=== PATIENT | male | born 1950 | race Caucasian/White ===

== ENCOUNTER → 2016-05-06 | Outpatient (CLI) | payer MEDICARE ==
[2016-05-06 10:09] LABS: CH 30.8; CHCM 32.8; HGB 13.7 gm/dL (13.0-17.5); MCH 30.2 pg (25.0-35.0); MCV 94.5 fL (80.0-100.0); Mean Platelet Volume 6.5; RBC 4.55 m/uL (4.30-5.90); WBC 7.1 k/uL (3.8-10.6)
[2016-05-06 10:20] LABS: Anion Gap 11 mmol/L; Blood Urea Nitrogen 18 mg/dL (9-20); Carbon Dioxide 32 mmol/L (22-30); Chloride 100 mmol/L (98-107); Non-African American GFR(MDRD) >60 (>60 ml/min/1.73 sqM); Potassium 3.8 mmol/L (3.5-5.1); Sodium 143 mmol/L (137-145)
== END | disposition home or self-care (01) ==
LOC: LABPAT 09:34
PROVIDERS: ATTEND Internal Medicine Cardiovascular Disease
DX: Z01.812 Encounter for preprocedural laboratory examination (principal); I25.10 Atherosclerotic heart disease of native coronary artery without angina pectoris
CPT/HCPCS: 80051; 82565; 84520; 85027

== ENCOUNTER 2016-05-14 06:05 | Day surgery (SDC) | payer MEDICARE ==
[2016-05-11 10:36] VITALS: BMI 34.7
[2016-05-14] MEDS ORDERED: ASPIRIN 325 MG TAB PO STA (06:27)
[2016-05-14] MEDS ORDERED: ALPRAZolam 0.25 MG TAB PO PRN (06:27)
[2016-05-14] MEDS ORDERED: SODIUM CHLORIDE 0.9% 1,000 ML in EMPTY BAG 1 BAG IV ONE (06:27)
[2016-05-14] MEDS ORDERED: NITROGLYCERIN SL TABS 0.4 MG TAB SUBLINGUAL PRN (06:27)
[2016-05-14] MEDS ORDERED: ALPRAZolam 0.5 MG TAB PO PRN (06:27)
[2016-05-14] MEDS ORDERED: ATORVASTATIN 80 MG TAB PO STA (06:27)
[2016-05-14 07:39] LABS: INR 1.2 (<1.1)
[2016-05-14] MEDS ORDERED: diphenhydrAMINE 50 MG/ML 1 ML VIAL IVP ONE (07:59)
[2016-05-14] MEDS ORDERED: MIDAZOLAM 2 MG/2 ML VIAL IVP ONE (07:59)
[2016-05-14] MEDS ORDERED: LIDOCAINE 2% INJ 20 MG/ML SQ ONE ×2 (08:02→09:05)
[2016-05-14] MEDS ORDERED: BIVALIRUDIN BOLUS 250 MG/50 ML IV ONE (08:39)
[2016-05-14] MEDS ORDERED: BIVALIRUDIN 250 MG in SODIUM CHLORIDE 0.9% 50 ML IV ONE (08:40)
--- NOTE | 2016-05-14 08:49 | CC ---
DATE OF SERVICE: INDICATION: Cardiomyopathy with multivessel coronary artery disease. Cardiomyopathy with multivessel coronary artery disease in a patient with recent inferior wall myocardial infarction at that time was found to have significant disease in LAD and circ. PROCEDURE NOTE: After obtaining informed consent, left heart catheterization and coronary angiogram are performed via the right femoral artery using standard Anika catheters. Patient tolerated the procedure well without any obvious immediate complications. Patient has very tortuous iliac vessels and I had to use a Glidewire to pass the catheters and we used a long exchange length wire to exchange the catheters. FINDINGS: HEMODYNAMICS: Left ventricular end-diastolic pressure is 24 mm. There is no significant gradient across the aortic valve. LEFT VENTRICULOGRAM: Left ventriculogram was not performed. ANGIOGRAPHIC DATA: LEFT MAIN CORONARY ARTERY: Left main coronary artery is normal, assessment is free of stenosis. It divides into left anterior descending coronary artery and circumflex coronary artery. LAD shows a 70% to 80% focal stenosis in the proximal part. Circumflex coronary artery shows a 60% to 70% stenosis distally and the OM branch shows a 40% to 50% proximal stenosis. Right coronary artery that was previously totally occluded at the end of the procedure appears open and the stents are open. CONCLUSION: Three-vessel coronary artery disease as described above with patent right coronary artery, proximal left anterior descending artery stenosis and elevation of the circ. Dr. David Denis who performed his previous angioplasty, will proceed with angioplasty of the left anterior descending artery at this time.
[2016-05-14] MEDS ORDERED: NITROGLYCERIN 1000MCG/10ML SYRINGE INTRACORON ONE (08:58)
[2016-05-14] MEDS ORDERED: HYDROmorphone 2 MG/ML 1 ML SYRINGE IVP ONE (09:05)
[2016-05-14] MEDS ORDERED: CLOPIDOGREL 75 MG TAB PO ONE (09:08)
[2016-05-14] MEDS ORDERED: IOHEXOL 350 MG/ML 100 ML BOTTLE INJ ONE (09:10)
[2016-05-14] MEDS: SODIUM CHLORIDE 0.9% 1,000 ML IV SCH (09:45)
[2016-05-14] MEDS: LOSARTAN-HCTZ 50-12.5 MG 1 EACH TAB PO SCH (11:21)
[2016-05-14] MEDS: ASPIRIN 81 MG CHEW PO SCH (11:21)
[2016-05-14] MEDS: METOPROLOL TARTRATE 50 MG TAB PO SCH ×2 (11:21→20:03)
[2016-05-14] MEDS ORDERED: amLODIPine 5 MG TAB PO SCH (11:30)
[2016-05-14] MEDS ORDERED: WARFARIN 3 MG TAB PO SCH (18:00)
[2016-05-14] MEDS ORDERED: ACETAMINOPHEN TAB 325 MG TAB PO PRN (18:29)
[2016-05-14] MEDS: guaiFENesin SYRUP 100MG/5ML 200 MG/10 ML CUP PO PRN (18:48)
--- NOTE | 2016-05-14 20:36 | PTCA ---
DATE OF SERVICE: 05/14/2015 PROCEDURE: 1. Percutaneous transluminal coronary angioplasty and stenting of proximal left anterior descending coronary artery. 2. Percutaneous transluminal coronary angioplasty and stenting of a mid circumflex coronary artery PERFORMED BY: Dr. David Denis. CLINICAL INFORMATION: Mr. Honorio Quinn is a 66-year-old gentleman with a known history of hypertension, hypercholesterolemia, chronic atrial fibrillation who presented with acute GA in March with a total occlusion of RCA underwent stenting of this vessel. There was a lot of thrombus ( ) that was not good. Patient went on to have a myocardial infarction. However, his LV function improved dramatically and he is known to have significant lesions in both proximal LAD and mid circumflex. He underwent cardiac cath performed by Dr. Ford which revealed that the RCA was widely patent with good flow. The circumflex lesion was about 70% to 80% and the proximal LAD lesion was about 80% eccentric in nature. He was advised intervention that was performed in the same setting. PROCEDURE NOTE: Existing 6 Canadian introducer in the right femoral artery was used to perform the procedure. I used a standard left Anika-type guide catheter to cannulate the left coronary artery. A BMW wire was used to cross the lesion. Wire was kept distally. Without predilatation, a 3.0 caliber, 8 mm long Xience stent was deployed at 14 atmospheres. Excellent angiographic result was achieved. I then used the same wire and advanced into the distal circumflex. A 3.25 caliber, 8 mm long Xience stent was deployed in the mid circumflex. I performed an LV gram using a pigtail catheter in 30 degree ZAMORA projection. Study revealed ejection fraction of 45% with inferobasal hypokinesia without much mitral regurgitation. Results from the LV gram are also discussed with the patient and family. Excellent angiographic result without complication was achieved. Patient received Angiomax bolus and infusion. He also received another 150 mg of Plavix. Patient was already on aspirin and Plavix. The sheath was taken out and a Perclose device used to secure hemostasis and he was sent to the room in stable condition. Excellent angiographic result without complication was achieved. I discussed the results with the family and also with the patient in detail and expect he can be discharged hopefully home tomorrow.
--- NOTE | 2016-05-14 20:38 | LTR ---
May 14, 2016 RE: Honorio Quinn Dear Dr. Espinoza: Thank you for the opportunity to participate in the care of Mr. Honorio Quinn. I am pleased to report to you that his previously dilated RCA was widely patent. I also performed an LV gram which revealed inferobasal hypokinesia. Ejection fraction 45%. I stented both the proximal LAD and mid circumflex with excellent angiographic result and I expect he will be discharged tomorrow. Thank you for the referral and please call for questions. With kindest regards, Sincerely, LUZ BUSTOS MD
--- NOTE | 2016-05-14 20:40 | PTCA ---
DATE OF SERVICE: ADDENDUM: I performed an LV gram using a pigtail catheter in 30 degree ZAMORA projection. Study revealed ejection fraction of 45% with inferobasal hypokinesia without much mitral regurgitation. Results from the LV gram are also discussed with the patient and family.
[2016-05-14] MEDS ORDERED: ATORVASTATIN 80 MG TAB PO SCH (21:00)
[2016-05-15] MEDS: guaiFENesin SYRUP 100MG/5ML 200 MG/10 ML CUP PO PRN ×2 (00:02→07:15)
[2016-05-15] MEDS: SODIUM CHLORIDE 0.9% 1,000 ML IV SCH (05:35)
[2016-05-15 06:28] LABS: INR 1.2 (<1.1); Prothrombin Time 11.5 sec (9.0-12.0)
[2016-05-15 08:07] VITALS: RESP 20; TEMP 98.6
[2016-05-15] MEDS: LOSARTAN-HCTZ 50-12.5 MG 1 EACH TAB PO SCH (08:09)
[2016-05-15] MEDS: METOPROLOL TARTRATE 50 MG TAB PO SCH (08:09)
[2016-05-15] MEDS: ASPIRIN 81 MG CHEW PO SCH (08:09)
--- NOTE | 2016-05-15 08:12 | DS ---
DATE OF ADMISSION: 05/14/2016 DATE OF DISCHARGE: 05/15/2016 PROCEDURES PERFORMED: 1. Left heart catheterization. 2. Angioplasty of left anterior descending artery and circumflex coronary artery. HOSPITAL COURSE: This is a 66-year-old gentleman with history of multivessel coronary artery disease, prior inferior wall myocardial infarction, chronic atrial fibrillation who presented to me with symptoms of unstable angina and was advised to undergo cardiac catheterization and angioplasty of the 2 vessels that he had lesions in. Patient underwent cardiac catheterization and angioplasty of both LAD and circumflex coronary artery. The right coronary artery, which was occluded on his previous catheterization appears patent. His post angioplasty course is fairly benign. He did not have any chest pains. Groin is stable. He is ambulating without any problems, but he developed a dry cough which he has had once in the recent past and it responded to Zithromax. CONDITION AT THE TIME OF DISCHARGE: Comfortable at rest. Vital signs are stable. There is no jugular venous distention. Chest exam reveals good air entry bilaterally. Heart exam reveals first and second heart sounds, irregular rhythm. No murmur. Groin is free of bleeding, bruit, hematoma. Chest exam does not reveal rhonchi or crackles. EKG shows atrial fibrillation with nonspecific ST-T wave changes. DISCHARGE MEDICATIONS; The patient will go home on the medications he was on at home including Plavix, Coumadin, Norvasc, Lotrel, sublingual nitroglycerin on a p.r.n. basis and aspirin. He will continue dual antiplatelet therapy for a year from now. I am also going to start him on a Z-Narinder given the symptoms of bronchitis. I asked him to follow up with his primary care physician on Wednesday if he is not feeling better. He will follow up with me in a week's time.
[2016-05-15] MEDS ORDERED: CLOPIDOGREL 75 MG TAB PO SCH (09:00)
[2016-05-15 09:05] VITALS: BP 112/63
[2016-05-15 09:07] VITALS: PULSE 83
== END 2016-05-15 10:33 | disposition home or self-care (01) ==
LOC: CATHCVL 06:05 → 6SEL 09:06 → CATHCVL 05-15 10:33
PROVIDERS: ATTEND Internal Medicine Cardiovascular Disease
DX: I25.110 Atherosclerotic heart disease of native coronary artery with unstable angina pectoris (principal); I77.1 Stricture of artery; I48.2 Chronic atrial fibrillation; G45.4 Transient global amnesia; I10 Essential (primary) hypertension; E78.00 Pure hypercholesterolemia, unspecified; E78.5 Hyperlipidemia, unspecified; I42.9 Cardiomyopathy, unspecified; I25.2 Old myocardial infarction; J40 Bronchitis, not specified as acute or chronic; Z79.01 Long term (current) use of anticoagulants; Z79.02 Long term (current) use of antithrombotics/antiplatelets; Z79.82 Long term (current) use of aspirin; Z79.899 Other long term (current) drug therapy; Z95.5 Presence of coronary angioplasty implant and graft
CPT/HCPCS: 93458; 85610 ×2; C9600 ×2; C1769 ×4; C1887; C1894; C1874; C1760; J2001; J2250; J1170; J1200; Q9967; J0583

== ENCOUNTER → 2018-04-05 | Outpatient (CLI) | payer MEDICARE ==
--- NOTE | 2018-04-05 09:21 | XR ---
EXAMINATION TYPE: XR shoulder complete RT DATE OF EXAM: 04/05/2018 COMPARISON: NONE HISTORY: 67 year-old male right shoulder pain TECHNIQUE: 3 views FINDINGS: Suture anchors at the humeral head from prior cuff repair. Mild degenerative spurring at the AC joint . Additional degenerative spurring at the glenohumeral joint with superior glenohumeral joint space n arrowing. There may be narrowing of the subacromial space. No acute fracture or dislocation. IMPRESSION: 1. Underlying glenohumeral joint osteoarthrosis. 2. Prior rotator cuff repair. There is some narrowing of the subacromial space. If concern for re-tea r, consider MRI. 3. Mild AC joint OA.
== END | disposition home or self-care (01) ==
LOC: RADXRYALE 08:35
PROVIDERS: ATTEND Internal Medicine
DX: M19.011 Primary osteoarthritis, right shoulder (principal)

== ENCOUNTER 2019-12-01 09:15 | Day surgery (SDC) | payer MEDICARE ==
[2019-11-28 14:59] VITALS: BMI 35.2
[~2019-12-01 09:15] MED LIST: LACTATED RINGERS 1,000 ML IV SCH; LIDOCAINE 1% (10MG/ML) FOR IV START INTRADERMA PRN
[2019-12-01 09:35] VITALS: RESP 16; TEMP 96.7
[2019-12-01] MEDS ORDERED: PROPOFOL 10 MG/ML 20 ML VIAL IV ONE (10:13)
--- NOTE | 2019-12-01 10:30 | P.PCN ---
Date of Procedure: 12/01/19 Procedure(s) Performed: BRIEF HISTORY: Patient is a 69-year-old pleasant white male scheduled for an elective colonoscopy as a part of evaluation of prior history of colon polyps. Last colonoscopy was 5 years ago. PROCEDURE PERFORMED: Colonoscopy with biopsy. PREOPERATIVE DIAGNOSIS: History of colon polyps. IV sedation per Anesthesia. PROCEDURE: After informed consent was obtained, the patient, was brought into the endoscopy unit. IV sedation was administered by Anesthesia under continuous monitoring. Digital rectal examination was normal. Initially the Olympus CF-160 flexible video colonoscope was then inserted in the rectum, gradually advanced into the cecum without any difficulty. Careful examination was performed as the scope was gradually being withdrawn. Ileocecal valve and the appendiceal orifice were visualized and appeared normal. Prep was excellent. Mucosa of the cecum, ascending colon, appeared normal. The transverse colon there was a 5 mm polyp that was removed by cold biopsy. Rest of the transverse colon, descending colon, sigmoid colon, and rectum appeared normal. Retroflexion was performed in the rectum and no lesions were seen. The patient tolerated the procedure well. IMPRESSION: 5 mm transverse colon polyp status post removal by cold biopsy Scattered sigmoid diverticula RECOMMENDATIONS: Findings of this examination were discussed with the patient as well as a family. He was advised to follow with the biopsy result. If the biopsy shows an adenoma he can have a repeat colonoscopy in 5 years
[2019-12-01 10:56] VITALS: BP 117/72; PULSE 87
== END 2019-12-01 11:11 | disposition home or self-care (01) ==
LOC: ORWHC2ENDO 09:15
PROVIDERS: ATTEND Internal Medicine Gastroenterology
DX: Z12.11 Encounter for screening for malignant neoplasm of colon (principal); D12.3 Benign neoplasm of transverse colon; K57.30 Diverticulosis of large intestine without perforation or abscess without bleeding; Z86.010 Personal history of colon polyps; I48.91 Unspecified atrial fibrillation; I10 Essential (primary) hypertension; I25.10 Atherosclerotic heart disease of native coronary artery without angina pectoris; I25.2 Old myocardial infarction; J44.9 Chronic obstructive pulmonary disease, unspecified; K21.9 Gastro-esophageal reflux disease without esophagitis; Z95.5 Presence of coronary angioplasty implant and graft; Z91.030 Bee allergy status; Z79.01 Long term (current) use of anticoagulants; Z79.82 Long term (current) use of aspirin; Z79.899 Other long term (current) drug therapy; Z98.890 Other specified postprocedural states
CPT/HCPCS: 88305; 45380; J2704

== ENCOUNTER → 2020-03-26 | Outpatient (CLI) | payer MEDICARE ==
--- NOTE | 2020-03-26 11:34 | XR ---
EXAMINATION TYPE: XR cervical spine limited DATE OF EXAM: 03/26/2020 TECHNIQUE: Frontal, lateral, and open mouth view of the cervical spine are obtained. HISTORY: Cervical disc disorder with radiculopathy midcervical region per order. Difficulty raising r ight arm after fall last month per patient. COMPARISON: None FINDINGS: The cervical spine is visualized in its entirety from C1 thru the top of T1 level, there i s reversal of normal cervical curvature without evidence of acute fracture or dislocation. The pre-v ertebral soft tissue appears within normal limits. The C1-C2 articulation is within normal limits on the open mouth view. Vertebral body heights are maintained. Moderate to severe multilevel spurring a nd disc space narrowing greatest at C3-C4 level. Mild to moderate carotid bulb vascular calcification s seen in the overlying soft tissue. IMPRESSION: As above.
== END | disposition home or self-care (01) ==
LOC: RADXRYALE 11:06
PROVIDERS: ATTEND Internal Medicine
DX: M48.02 Spinal stenosis, cervical region (principal); M50.120 Mid-cervical disc disorder, unspecified level
CPT/HCPCS: 72040

== ENCOUNTER → 2020-05-23 | Outpatient (CLI) | payer MEDICARE ==
--- NOTE | 2020-05-23 08:46 | MR ---
MRI CERVICAL SPINE: CLINICAL HISTORY: Myalgia, headache, spondylosis, cervical disc degeneration, sprain of ligamentous, and neck pain all for order. TECHNIQUE: Multiplanar, multisequence imaging of the cervical spine is performed without IV contrast. COMPARISON: Cervical spine x-ray March 26, 2020. FINDINGS: Coronal images redemonstrate dextroconvex scoliotic curvature centered upper thoracic spine . Sagittal images redemonstrate loss of normal cervical curvature with grade 1 retrolisthesis C3 on C 4, C4 on C5, C5 on C6, C6 on C7, and C7 on T1. Moderate to severe multilevel anterior spurring with h eterogeneous Modic endplate changes. Multilevel disc desiccation and moderate disc space narrowing. H emangioma noted C6 and larger at T2 vertebra. The cervical and upper thoracic spinal cord shows area of diminished AP diameter and slight increased signal centered C4-C5 level. Generalized AP canal diam eter narrowing. The vertebral body heights are normal. Axial images at C2-C3 level shows uncovertebral facet degenerative changes and posterior bony protrus ion effacing the anterior thecal sac and causing moderate left and mild right-sided neural foraminal narrowing. Axial images at C3-C4 level shows spondylosis with uncovertebral facet degenerative changes and broad -based right paracentral/foraminal disc protrusion. There is advanced right and [id number] left -sided neural foraminal narrowing. There is effacement anterior thecal sac and ventral cervical spina l cord. Some increased cord signal on axial images did not reproduce on sagittal images. Axial images at C4-C5 levels with spondylolisthesis with broad-based left posterior central disc prot rusion effaces the anterior thecal sac. The ventral surface of spinal cord and uncovertebral facet de generative changes causing advanced left and moderate to advanced right-sided neural foraminal narrow ing. Some increased cord signal are present on axial sagittal images at this level. Axial images at C5-C6 level show focal right paracentral disc extrusion extending inferiorly and spon dylolisthesis with uncovertebral facet degenerative changes causing advanced bilateral neural foramin al narrowing. There is effacement of ventral surface of spinal cord. Axial images at C6-C7 level showed broad based left paracentral disc protrusion effacing anterior the cayden sac and subtle spondylolisthesis, there is effacement to ventral surface of spinal cord and advan jorge left along with moderate right-sided neural foraminal narrowing. Axial images at C7-T1 level show spondylolisthesis with broad base posterior spur disc complex, there is moderate to advanced right and moderate left-sided neural foraminal narrowing. There is effacemen t of the anterior thecal sac. Thyroid gland not well seen and suspected small in size near axial image 11 with tiny nodules. IMPRESSION: Multilevel spondylolisthesis and moderate to advanced degenerative changes as detailed ab ove. Significant spinal canal stenosis at several levels, some Spinal cord mass effect at C4-C5 level .
== END | disposition home or self-care (01) ==
LOC: RADMRIMAIN 07:45
PROVIDERS: ATTEND Orthopaedic Surgery Orthopaedic Surgery of the Spine
DX: M48.02 Spinal stenosis, cervical region (principal); M43.12 Spondylolisthesis, cervical region; M43.13 Spondylolisthesis, cervicothoracic region; M47.812 Spondylosis without myelopathy or radiculopathy, cervical region; M53.82 Other specified dorsopathies, cervical region
CPT/HCPCS: 72141

== ENCOUNTER → 2021-01-27 | Outpatient (CLI) | payer MEDICARE ==
[2021-01-27 11:30] VITALS: BP 120/73; PULSE 69; RESP 18
--- NOTE | 2021-01-27 19:14 | P.PAINCN ---
History of Present Illness - Reason for Consult Consult date: 01/27/21 - History of Present Illness This is an initial consultation visit for this 70 years old male with a chronic history of severe low back pain started more than 6 years ago, patient denies any initiating event and he reported that the pain is constant and increases with any activity localized mostly in the low back area with radiation to the posterior aspect of the right lower extremity, he feels some weakness in the lower extremities he had difficulty ambulating secondary to the intensity of the pain, the pain is constant and increases with any activity interfere with the quality of life and activity of daily livings, patient tried medication Ultram , and the medications is providing him with minimal pain relief Past Medical History Past Medical History: Atrial Fibrillation, Coronary Artery Disease (CAD), Chest Pain / Angina, COPD, GERD/Reflux, Hearing Disorder / Deafness, Hyperlipidemia, Hypertension, Myocardial Infarction (MS), Osteoarthritis (OA) Additional Past Medical History / Comment(s): Chronic AFib, MS X2, bilateral use of hearing aids. lower back and hip pains Last Myocardial Infarction Date:: 03/31/16 History of Any Multi-Drug Resistant Organisms: None Reported Past Surgical History: Heart Catheterization With Stent, Orthopedic Surgery Additional Past Surgical History / Comment(s): Cardiac stents X2, bilateral carpal tunnel repair, bilateral rotator cuff repair, bilateral cataract removal. Past Anesthesia/Blood Transfusion Reactions: Postoperative Nausea & Vomiting (PONV) Additional Past Anesthesia/Blood Transfusion Reaction / Comm: . Date of Last Stent Placement:: 05/14/16 Smoking Status: Former smoker - Past Family History Father Family Medical History: Myocardial Infarction (MS) Additional Family Medical History / Comment(s): Father of a MS at the age of 62 yrs. Mother Family Medical History: Diabetes Mellitus, Renal Disease Additional Family Medical History / Comment(s): Mother at the age of 67yrs from renal failure. Brother(s) Family Medical History: Congestive Heart Failure (CHF) Additional Family Medical History / Comment(s): Pt has 3 brothers that had CHF. Medications and Allergies Home Medications Medication Instructions Recorded Confirmed Type Metoprolol Tartrate [Lopressor] 50 mg PO BID 03/31/16 01/27/21 History Warfarin [Coumadin] 5 mg PO DAILY 03/31/16 01/27/21 History amLODIPine [Norvasc] 10 mg PO DAILY 03/31/16 01/27/21 History Aspirin 81 mg PO DAILY chew 04/04/16 01/27/21 Rx Atorvastatin [Lipitor] 40 mg PO HS 11/08/19 01/27/21 History Losartan Potassium 100 mg PO DAILY 11/08/19 01/27/21 History hydroCHLOROthiazide 25 mg PO DAILY 11/08/19 01/27/21 History traMADol HCL [Ultram] 50 mg PO DAILY PRN 01/24/21 01/27/21 History Allergies Allergy/AdvReac Type Severity Reaction Status Date / Time venom-honey bee AdvReac Anaphylaxis Verified 01/27/21 11:30 Physical Exam Vitals: Vital Signs Pulse Resp BP Pulse Ox 01/27/21 11:24 69 18 120/73 95 Physical Examinations : -Constitutiona : Cooperative , not in acute distress . -HEENT : nech : supple , no Lymphadenopathy , normal thyroid size . : eyes : no ptosis , no icterus, no photophobia . - neurologic : Cranial nerve II to XII intact , no focal neurological deffecit . -psychatric : alert , oriented X 3 , appropriate affect , intact judgment and insight . -Lymphatic : no Lymphadenopathy . - musculoskeltal : Lumber spine moter stegnth lower extremities ,thigh and legs 5/5 Right side , 5/5 Left side deep tendon reflexes : normal Knee Jerk , normal ankle Jerk lumber facet Loading Test =positive Right positive Left R>L Range of motion of the lumbar spine Flexion 30 degrees, extension 10 degrees strait leg raising test = positive at 30 degree on the right Fabere test= positive Right , and positive LT . tenderness over the Sacroiliac joint on the Right. Results Comments: MRI of the lumbar spine lumbar spinal stenosis at L3 4 and multilevel lumbar facet arthropathy multilevel lumbar degenerative disc disease Assessment and Plan Plan: Assessment and plan=1-lumbar spondylosis with lumbar facet arthropathy without myelopathy. 2-lumbar degenerative disc disease. 3-lumbar spinal stenosis. Patient will be good candidate to have diagnostic medial branch block lumbar area at L3, L4, L5 bilaterally and possible RFA Time with Patient: Greater than 30 PQRS Measure Charge Sheet Measure #130: Documentation of Current Meds in Medical Chart: Patient's medications documented in chart Measure #226: Tobacco Use: Screen & Cessation Intervention: Pt not a tobacco user Measure #111: Pneumonia Vaccination: Pneumococcal vaccine NOT administered or previously given Measure #47: Advance Care Plan: Advance care planning discussed & documented, pt chose/unable to give Measure #412: Opioid Treatment Agreement: No documentation of signed opioid treatment agreement Measure #408: Opioid Therapy Follow-up Evaluation: Patient had NO f/u eval minimum every 3 months during opioid therapy Measure #317: Preventitive Care & Scrn High Bld Press & F/U: Normal blood pressure, f/u not required Measure #128: Body Mass Index (BMI) Screening & Follow-up: BMI documented ABOVE normal parameters - f/u documented Measure #131: Pain Assessment & Follow-up: Pain positive & plan documented, Follow-up scheduled Measure #431: Unhealthy Alcohol Use Preventative Care & Scrn: Patient not identified as an unhealthy alcohol user Mode of Arrival: Wheelchair - Pain Location Lower Back Non-Pharmacological Interventions: Home Exercise, Ice, Massage, Position/Rep osition Pharmacological Interventions: PRN Medication PQRS Narrative: Smoking Status Former smoker Blood Pressure 120/73 Pain Intensity [Lower Back] 10 Scale Used Numeric (1 - 10) Hx Alcohol Use (MH) No Home Medications: Ambulatory Orders Metoprolol Tartrate [Lopressor] 50 mg PO BID 03/31/16 Warfarin [Coumadin] 5 mg PO DAILY 03/31/16 amLODIPine [Norvasc] 10 mg PO DAILY 03/31/16 Aspirin 81 mg PO DAILY chew 04/04/16 Atorvastatin [Lipitor] 40 mg PO HS 11/08/19 Losartan Potassium 100 mg PO DAILY 11/08/19 hydroCHLOROthiazide 25 mg PO DAILY 11/08/19 traMADol HCL [Ultram] 50 mg PO DAILY PRN 01/24/21
== END ==
LOC: PNWHC3 11:09
PROVIDERS: ATTEND Specialist
DX: M47.816 Spondylosis without myelopathy or radiculopathy, lumbar region (principal); M51.36 Other intervertebral disc degeneration, lumbar region; M48.061 Spinal stenosis, lumbar region without neurogenic claudication; I25.10 Atherosclerotic heart disease of native coronary artery without angina pectoris; J44.9 Chronic obstructive pulmonary disease, unspecified; K21.9 Gastro-esophageal reflux disease without esophagitis; E78.5 Hyperlipidemia, unspecified; I10 Essential (primary) hypertension; I25.2 Old myocardial infarction; M19.90 Unspecified osteoarthritis, unspecified site; I48.20 Chronic atrial fibrillation, unspecified; Z95.1 Presence of aortocoronary bypass graft; Z87.891 Personal history of nicotine dependence; Z79.01 Long term (current) use of anticoagulants; Z79.82 Long term (current) use of aspirin; Z79.899 Other long term (current) drug therapy; Z91.030 Bee allergy status
CPT/HCPCS: 99202

== ENCOUNTER 2021-02-14 18:48 | Emergency (ER) | payer MEDICARE ==
[2021-02-14 19:23] VITALS: BP 130/72; PULSE 89; RESP 20; TEMP 98.6
[2021-02-14] MEDS ORDERED: KETOROLAC 15 MG/ML 1 ML VIAL IM STA (20:30)
[2021-02-14] MEDS ORDERED: MORPHINE SULFATE 4 MG/ML SYRINGE IM STA (20:30)
[2021-02-14 21:04] LABS: Appearance,Urine Clear (Clear); Bilirubin,Urine Negative (Negative); Blood,Urine Negative (Negative); Color,Urine Yellow; Glucose,Urine (UA) Negative (Negative); Ketones,Urine Negative (Negative); Leukocyte Esterase,Urine Negative (Negative); Nitrite,Urine Negative (Negative); Protein,Urine Negative (Negative); Specific Gravity,Urine 1.014 (1.001-1.035); Urobilinogen,Urine <2.0 mg/dL (<2.0)
--- NOTE | 2021-02-14 21:08 | XR ---
EXAMINATION TYPE: XR lumbosacral spine min 4V DATE OF EXAM: 02/14/2021 COMPARISON: 01/29/2015 HISTORY: Back pain TECHNIQUE: 5 views FINDINGS: There is a slight lumbar dextroscoliosis. There is multilevel lumbar spondylotic changes wi th disc space narrowing and spur formation. There is vacuum disc. The posterior elements are intact. There is no compression fracture. Sacroiliac joints are intact. IMPRESSION: Moderate multilevel lumbar spondylotic changes. No compression fracture. There is increas ed spur formation compared to old exam.
--- NOTE | 2021-02-14 21:09 | XR ---
EXAMINATION TYPE: XR pelvis AP view DATE OF EXAM: 02/14/2021 COMPARISON: NONE HISTORY: Fall. Back pain TECHNIQUE: Single view FINDINGS: The pelvic ring is intact. Proximal femurs are intact. Sacroiliac joints are intact. IMPRESSION: Negative exam. No fracture.
--- NOTE | 2021-02-14 22:05 | ED ---
Back Pain HPI - General Chief Complaint: Back Pain/Injury Stated Complaint: Lower back pain Time Seen by Provider: 02/14/21 19:39 Source: patient Limitations: no limitations - History of Present Illness Initial Comments: 70-year-old male patient with past history significant for chronic low back pain presents for evaluation of increased right low back pain with radiation down the right leg. Patient states that he has had back problems for quite a long time. States over the last 2-3 days his symptoms have been worsening. States he is scheduled for back surgery in February. States that he was taking his home medications without relief. He denies any saddle anesthesia or loss of bowel or bladder control. Denies any numbness to the lower extremities. States he did have a fall 2 days ago and landed on his buttocks. Denies hitting his head or losing consciousness. He is unsure if this contributed to the increase in pain. Patient states he did have leg weakness last evening which did improve throughout the night. Denies fever or chills. Denies nausea or vomiting or abdominal pain. Denies constipation or diarrhea. - Related Data Home Medications Medication Instructions Recorded Confirmed Metoprolol Tartrate [Lopressor] 50 mg PO BID 03/31/16 01/27/21 Warfarin [Coumadin] 5 mg PO DAILY 03/31/16 01/27/21 amLODIPine [Norvasc] 10 mg PO DAILY 03/31/16 01/27/21 Atorvastatin [Lipitor] 40 mg PO HS 11/08/19 01/27/21 Losartan Potassium 100 mg PO DAILY 11/08/19 01/27/21 hydroCHLOROthiazide 25 mg PO DAILY 11/08/19 01/27/21 traMADol HCL [Ultram] 50 mg PO DAILY PRN 01/24/21 01/27/21 Previous Rx's Medication Instructions Recorded Aspirin 81 mg PO DAILY chew 04/04/16 Cyclobenzaprine [Flexeril] 10 mg PO TID #15 tab 02/14/21 HYDROcodone/APAP 7.5-325MG [[place] 1 tab PO Q6HR PRN 3 Days #12 tab 02/14/21 7.5-325] Allergies Allergy/AdvReac Type Severity Reaction Status Date / Time venom-honey bee AdvReac Anaphylaxis Verified 02/14/21 19:23 Review of Systems ROS Statement: Those systems with pertinent positive or pertinent negative responses have been documented in the HPI. ROS Other: All systems not noted in ROS Statement are negative. Past Medical History Past Medical History: Atrial Fibrillation, Coronary Artery Disease (CAD), Chest Pain / Angina, COPD, GERD/Reflux, Hearing Disorder / Deafness, Hyperlipidemia, Hypertension, Myocardial Infarction ([place]), Osteoarthritis (OA) Additional Past Medical History / Comment(s): Chronic AFib, [place] X2, bilateral use of hearing aids. lower back and hip pains Last Myocardial Infarction Date:: 03/31/16 History of Any Multi-Drug Resistant Organisms: None Reported Past Surgical History: Heart Catheterization With Stent, Orthopedic Surgery Additional Past Surgical History / Comment(s): Cardiac stents X2, bilateral carpal tunnel repair, bilateral rotator cuff repair, bilateral cataract removal. Past Anesthesia/Blood Transfusion Reactions: Postoperative Nausea & Vomiting (PONV) Additional Past Anesthesia/Blood Transfusion Reaction / Comment(s): . Date of Last Stent Placement:: 05/14/16 Past Psychological History: No Psychological Hx Reported Smoking Status: Former smoker - Past Family History Father Family Medical History: Myocardial Infarction ([place]) Additional Family Medical History / Comment(s): Father of a [place] at the age of 62 yrs. Mother Family Medical History: Diabetes Mellitus, Renal Disease Additional Family Medical History / Comment(s): Mother at the age of 67yrs from renal failure. Brother(s) Family Medical History: Congestive Heart Failure (CHF) Additional Family Medical History / Comment(s): Pt has 3 brothers that had CHF. General Exam Limitations: no limitations General appearance: alert, in no apparent distress, other (This is a well- developed, well-nourished adult male patient in mild distress related to pain.) ENT exam: Present: normal exam, normal oropharynx, mucous membranes moist Respiratory exam: Present: normal lung sounds bilaterally. Absent: respiratory distress, wheezes, rales, rhonchi, stridor Cardiovascular Exam: Present: regular rate, normal rhythm, normal heart sounds. Absent: systolic murmur, diastolic murmur, rubs, gallop, clicks GI/Abdominal exam: Present: soft, normal bowel sounds. Absent: distended, tenderness, guarding, rebound, rigid Extremities exam: Present: normal inspection, full ROM, normal capillary refill, other (Skin to the lower extremities is pink, warm, dry. Cap refill less than 3 seconds. Pedal and posttibial pulses 2+.). Absent: tenderness, pedal edema, joint swelling, calf tenderness Back exam: Present: normal inspection, vertebral tenderness (Lower lumbar) Neurological exam: Present: alert, oriented X3, CN II-XII intact Psychiatric exam: Present: normal affect, normal mood Skin exam: Present: warm, dry, intact, normal color. Absent: rash Course Vital Signs 02/14/21 19:20 Temperature 98.6 F Pulse Rate 89 Respiratory 20 Rate Blood Pressure 130/72 O2 Sat by Pulse 98 Oximetry Medical Decision Making - Medical Decision Making 70-year-old male patient presented to the emergency department today for increase in his chronic low back pain. Physical examination is unremarkable. He is neurologically intact. No concerning symptoms for cauda equina. Did have a fall 2 days ago so did x-ray the pelvis and the lumbar spine which showed no acute abnormalities. He was given pain medication here. Upon reevaluation states he is feeling somewhat better. Does feel comfortable being discharged home. We'll give an increase in his [place] dosage for the next few days until he can see his physician on Wednesday. Return parameters were discussed in detail. He verbalizes understanding and agrees with this plan. My attending is Dr. Chang watson. - Lab Data Lab Results 02/14/21 Range/Units 20:46 Urine Color Yellow Urine Appearance Clear (Clear) Urine pH 5.0 (5.0-8.0) Ur Specific [place] 1.014 (1.001-1.035) Urine Protein Negative (Negative) Urine Glucose (UA) Negative (Negative) Urine Ketones Negative (Negative) Urine Blood Negative (Negative) Urine Nitrite Negative (Negative) Urine Bilirubin Negative (Negative) Urine Urobilinogen <2.0 (<2.0) mg/dL Ur Leukocyte Esterase Negative (Negative) - Radiology Data Radiology results: report reviewed, image reviewed Single view of the pelvis is obtained. Xray showed negative exam. No fracture. Lumbar spine x-rays obtained. Shows moderate multilevel lumbar spondylotic changes. No compression fracture. There is increased per formation compared to old exam. Disposition Clinical Impression: Acute exacerbation of chronic low back pain Disposition: HOME SELF-CARE Condition: Good Instructions (If sedation given, give patient instructions): Acute Low Back Pain (ED) Additional Instructions: Take medications as directed. Follow-up with Dr. Kumari as soon as possible. Return for any new, worsening, or concerning symptoms. Prescriptions: Cyclobenzaprine [Flexeril] 10 mg PO TID #15 tab HYDROcodone/APAP 7.5-325MG [[place] 7.5-325] 1 tab PO Q6HR PRN 3 Days #12 tab PRN Reason: Pain Is patient prescribed a controlled substance at d/c from ED?: Yes When asked, does pt state using other controlled substances?: Yes If prescribed controlled substance>3 days was MAPS reviewed?: Prescribed <3 Days If opioid is for acute pain is fill amount 7 days or less?: Yes If Rx opioid, was Start Talking consent form obtained?: Yes Referrals: Arlette Espinoza MD [Primary Care Provider] - 1-2 days Mica Kumari DO [Doctor of Osteopathic Medicine] - 1-2 days Time of Disposition: 22:05
[2021-02-14] MEDS ORDERED: CYCLOBENZAPRINE 10MG STARTER 3 TAB BTL PO STA (22:10)
== END 2021-02-14 22:33 | disposition home or self-care (01) ==
LOC: EC 18:48
DX: M47.816 Spondylosis without myelopathy or radiculopathy, lumbar region (principal); I10 Essential (primary) hypertension; I25.2 Old myocardial infarction; I48.91 Unspecified atrial fibrillation; I25.10 Atherosclerotic heart disease of native coronary artery without angina pectoris; J44.9 Chronic obstructive pulmonary disease, unspecified; K21.9 Gastro-esophageal reflux disease without esophagitis; E78.5 Hyperlipidemia, unspecified; M19.90 Unspecified osteoarthritis, unspecified site; Z79.82 Long term (current) use of aspirin; Z87.891 Personal history of nicotine dependence
CPT/HCPCS: 99283 ×2; 96372 ×3; 81003; 72110; 72170; J2270; J1885

== ENCOUNTER 2021-02-20 22:39 | Emergency (ER) | payer MEDICARE ==
[2021-02-20 22:53] VITALS: RESP 18
--- NOTE | 2021-02-20 23:57 | ED ---
Male Urogenital HPI - General Chief complaint: Urogenital Stated complaint: Leg swelling Time Seen by Provider: 02/20/21 23:54 Source: patient, family, RN notes reviewed, old records reviewed Mode of arrival: wheelchair Limitations: no limitations - History of Present Illness Initial comments: This 70-year-old male to the emergency department for evaluation of severe back pain bilateral lower [place] edema and swelling, severe abdominal pain difficulty with urination. Patient presents today be having an inability to urinate currently states he scheduled follow-up with all the rest the swelling is seeing a animal sitter for the leg edema history or animal sitter for as well as seeing a back surgery for his back pain. No new traumas no other complaints MD Complaint: testicle pain, dysuria -: days(s) Location: penis Severity: severe Severity scale (1-10): 10 Quality: aching, sharp Consistency: constant Improves with: none Worsens with: none Reports: urinary retention, nausea/vomiting - Related Data Home Medications Medication Instructions Recorded Confirmed Metoprolol Tartrate [Lopressor] 50 mg PO BID 03/31/16 01/27/21 Warfarin [Coumadin] 5 mg PO DAILY 03/31/16 01/27/21 amLODIPine [Norvasc] 10 mg PO DAILY 03/31/16 01/27/21 Atorvastatin [Lipitor] 40 mg PO HS 11/08/19 01/27/21 Losartan Potassium 100 mg PO DAILY 11/08/19 01/27/21 hydroCHLOROthiazide 25 mg PO DAILY 11/08/19 01/27/21 traMADol HCL [Ultram] 50 mg PO DAILY PRN 01/24/21 01/27/21 Previous Rx's Medication Instructions Recorded Aspirin 81 mg PO DAILY chew 04/04/16 Cyclobenzaprine [Flexeril] 10 mg PO TID #15 tab 02/14/21 HYDROcodone/APAP 7.5-325MG [[place] 1 tab PO Q6HR PRN 3 Days #12 tab 02/14/21 7.5-325] Allergies Allergy/AdvReac Type Severity Reaction Status Date / Time venom-honey bee AdvReac Anaphylaxis Verified 02/20/21 22:49 Review of Systems ROS Statement: Those systems with pertinent positive or pertinent negative responses have been documented in the HPI. ROS Other: All systems not noted in ROS Statement are negative. Past Medical History Past Medical History: Atrial Fibrillation, Coronary Artery Disease (CAD), Chest Pain / Angina, COPD, GERD/Reflux, Hearing Disorder / Deafness, Hyperlipidemia, Hypertension, Myocardial Infarction ([place]), Osteoarthritis (OA) Additional Past Medical History / Comment(s): Chronic AFib, [place] X2, bilateral use of hearing aids. lower back and hip pains Last Myocardial Infarction Date:: 03/31/16 History of Any Multi-Drug Resistant Organisms: None Reported Past Surgical History: Heart Catheterization With Stent, Orthopedic Surgery Additional Past Surgical History / Comment(s): Cardiac stents X2, bilateral carpal tunnel repair, bilateral rotator cuff repair, bilateral cataract removal. Past Anesthesia/Blood Transfusion Reactions: Postoperative Nausea & Vomiting (PONV) Additional Past Anesthesia/Blood Transfusion Reaction / Comment(s): . Date of Last Stent Placement:: 05/14/16 Past Psychological History: No Psychological Hx Reported Smoking Status: Former smoker Past Alcohol Use History: None Reported Past Drug Use History: None Reported - Past Family History Father Family Medical History: Myocardial Infarction ([place]) Additional Family Medical History / Comment(s): Father of a [place] at the age of 62 yrs. Mother Family Medical History: Diabetes Mellitus, Renal Disease Additional Family Medical History / Comment(s): Mother at the age of 67yrs from renal failure. Brother(s) Family Medical History: Congestive Heart Failure (CHF) Additional Family Medical History / Comment(s): Pt has 3 brothers that had CHF. General Exam Limitations: no limitations General appearance: alert, in no apparent distress, anxious Head exam: Present: atraumatic, normocephalic, normal inspection Eye exam: Present: normal appearance, PERRL, EOMI. Absent: scleral icterus, conjunctival injection, periorbital swelling ENT exam: Present: normal exam, mucous membranes moist Neck exam: Present: normal inspection. Absent: tenderness, meningismus, lymphadenopathy Respiratory exam: Present: normal lung sounds bilaterally. Absent: respiratory distress, wheezes, rales, rhonchi, stridor Cardiovascular Exam: Present: regular rate, normal rhythm, normal heart sounds. Absent: systolic murmur, diastolic murmur, rubs, gallop, clicks GI/Abdominal exam: Present: soft, normal bowel sounds. Absent: distended, tenderness, guarding, rebound, rigid Extremities exam: Present: normal inspection, full ROM, normal capillary refill. Absent: tenderness, pedal edema, joint swelling, calf tenderness Back exam: Present: normal inspection Neurological exam: Present: alert, oriented X3, CN II-XII intact Psychiatric exam: Present: normal affect, normal mood Skin exam: Present: warm, dry, intact, normal color. Absent: rash Course Vital Signs 02/20/21 22:49 Temperature 99.1 F Pulse Rate 84 Respiratory 18 Rate Blood Pressure 130/80 O2 Sat by Pulse 97 Oximetry - Reevaluation(s) Reevaluation #1: 02/21/21 03:16 Medical record is reviewed Reevaluation #2: 02/21/21 03:16 Patient has [place] catheter placed with significant output greater than 1 L Be sent home with [place] catheter Reevaluation #3: 02/21/21 03:16 Patient does not want admission will go home on increased dose of Lasix Medical Decision Making - Medical Decision Making 70 male to the emergency department today. Patient Dese for evaluation of back pain with severe urinary retention, retention is resolved here in the ER back pain is improved patient does not want hospital admission will continue outpatient follow-up as he has scheduled - Lab Data Result diagrams: 02/21/21 01:24 02/21/21 01:24 Lab Results 02/20/21 02/21/21 02/21/21 Range/Units 00:48 01:24 01:24 WBC 8.1 (3.8-10.6) k/uL RBC 4.04 L (4.30-5.90) m/uL Hgb 13.0 (13.0-17.5) gm/dL Hct 38.7 L (39.0-53.0) % MCV 95.8 (80.0-100.0) fL MCH 32.2 (25.0-35.0) pg MCHC 33.7 (31.0-37.0) g/dL RDW 13.1 (11.5-15.5) % Plt Count 293 (150-450) k/uL MPV 6.9 Neutrophils % 76 % Lymphocytes % 12 % Monocytes % 7 % Eosinophils % 3 % Basophils % 0 % Neutrophils # 6.2 (1.3-7.7) k/uL Lymphocytes # 1.0 (1.0-4.8) k/uL Monocytes # 0.6 (0-1.0) k/uL Eosinophils # 0.2 (0-0.7) k/uL Basophils # 0.0 (0-0.2) k/uL Sodium 134 L (137-145) mmol/L Potassium 3.4 L (3.5-5.1) mmol/L Chloride 96 L (98-107) mmol/L Carbon Dioxide 30 (22-30) mmol/L Anion Gap 8 mmol/L BUN 30 H (9-20) mg/dL Creatinine 1.05 (0.66-1.25) mg/dL Est GFR (CKD-EPI)AfAm 82 (>60 ml/min/1.73 sqM) Est GFR (CKD-EPI)NonAf 71 (>60 ml/min/1.73 sqM) Glucose 114 H (74-99) mg/dL Calcium 9.8 (8.4-10.2) mg/dL Phosphorus 3.6 (2.5-4.5) mg/dL Magnesium 1.7 (1.6-2.3) mg/dL Total Bilirubin 0.8 (0.2-1.3) mg/dL AST 29 (17-59) U/L ALT 22 (4-49) U/L Alkaline Phosphatase 89 (38-126) U/L Troponin I (0.000-0.034) ng/mL NT-Pro-B Natriuret Pep pg/mL Total Protein 7.1 (6.3-8.2) g/dL Albumin 4.1 (3.5-5.0) g/dL Urine Color Light Yellow Urine Appearance Cloudy (Clear) Urine pH 5.5 (5.0-8.0) Ur Specific [place] 1.010 (1.001-1.035) Urine Protein Trace H (Negative) Urine Glucose (UA) Negative (Negative) Urine Ketones Negative (Negative) Urine Blood Negative (Negative) Urine Nitrite Negative (Negative) Urine Bilirubin Negative (Negative) Urine Urobilinogen <2.0 (<2.0) mg/dL Ur Leukocyte Esterase Negative (Negative) Urine RBC 1 (0-5) /hpf Urine WBC 1 (0-5) /hpf Ur Squamous Epith Cells <1 (0-4) /hpf Urine Bacteria Rare H (None) /hpf Urine Mucus Few H (None) /hpf 02/21/21 02/21/21 Range/Units 01:24 01:24 WBC (3.8-10.6) k/uL RBC (4.30-5.90) m/uL Hgb (13.0-17.5) gm/dL Hct (39.0-53.0) % MCV (80.0-100.0) fL MCH (25.0-35.0) pg MCHC (31.0-37.0) g/dL RDW (11.5-15.5) % Plt Count (150-450) k/uL MPV Neutrophils % % Lymphocytes % % Monocytes % % Eosinophils % % Basophils % % Neutrophils # (1.3-7.7) k/uL Lymphocytes # (1.0-4.8) k/uL Monocytes # (0-1.0) k/uL Eosinophils # (0-0.7) k/uL Basophils # (0-0.2) k/uL Sodium (137-145) mmol/L Potassium (3.5-5.1) mmol/L Chloride (98-107) mmol/L Carbon Dioxide (22-30) mmol/L Anion Gap mmol/L BUN (9-20) mg/dL Creatinine (0.66-1.25) mg/dL Est GFR (CKD-EPI)AfAm (>60 ml/min/1.73 sqM) Est GFR (CKD-EPI)NonAf (>60 ml/min/1.73 sqM) Glucose (74-99) mg/dL Calcium (8.4-10.2) mg/dL Phosphorus (2.5-4.5) mg/dL Magnesium (1.6-2.3) mg/dL Total Bilirubin (0.2-1.3) mg/dL AST (17-59) U/L ALT (4-49) U/L Alkaline Phosphatase (38-126) U/L Troponin I 0.014 (0.000-0.034) ng/mL NT-Pro-B Natriuret Pep 650 pg/mL Total Protein (6.3-8.2) g/dL Albumin (3.5-5.0) g/dL Urine Color Urine Appearance (Clear) Urine pH (5.0-8.0) Ur Specific [place] (1.001-1.035) Urine Protein (Negative) Urine Glucose (UA) (Negative) Urine Ketones (Negative) Urine Blood (Negative) Urine Nitrite (Negative) Urine Bilirubin (Negative) Urine Urobilinogen (<2.0) mg/dL Ur Leukocyte Esterase (Negative) Urine RBC (0-5) /hpf Urine WBC (0-5) /hpf Ur Squamous Epith Cells (0-4) /hpf Urine Bacteria (None) /hpf Urine Mucus (None) /hpf Disposition Clinical Impression: Urinary retention, Acute exacerbation of chronic low back pain Disposition: HOME SELF-CARE Condition: Good Instructions (If sedation given, give patient instructions): Urinary Retention in Men (ED) Is patient prescribed a controlled substance at d/c from ED?: No Referrals: Arlette Espinoza MD [Primary Care Provider] - 1-2 days
[2021-02-21] MEDS ORDERED: HYDROmorphone 1 MG/ML 1 ML SYRINGE IVP STA (00:10)
[2021-02-21 00:53] LABS: Appearance,Urine Cloudy (Clear); Bacteria,Urine Rare /hpf; Bilirubin,Urine Negative (Negative); Blood,Urine Negative (Negative); Color,Urine Light Yellow; Glucose,Urine (UA) Negative (Negative); Ketones,Urine Negative (Negative); Leukocyte Esterase,Urine Negative (Negative); Mucus,Urine Few /hpf; Nitrite,Urine Negative (Negative); PH, Urine 5.5 (5.0-8.0); Protein,Urine Trace (Negative); RBC,Urine 1 /hpf (0-5); Squamous Epithelial Cell,Urine <1 /hpf (0-4); Urobilinogen,Urine <2.0 mg/dL (<2.0); WBC,Urine 1 /hpf (0-5)
[2021-02-21 01:32] LABS: Basophils % (A) 0 %; Eosinophils # (A) 0.2 k/uL (0-0.7); Eosinophils % (A) 3 %; HCT 38.7 % (39.0-53.0); Lymphocytes % (A) 12 %; MCH 32.2 pg (25.0-35.0); MCHC 33.7 g/dL (31.0-37.0); MCV 95.8 fL (80.0-100.0); Mean Platelet Volume 6.9; Monocytes # (A) 0.6 k/uL (0-1.0); Monocytes % (A) 7 %; Neutrophils # (A) 6.2 k/uL (1.3-7.7); Neutrophils % (A) 76 %; Platelet Count 293 k/uL (150-450); RBC 4.04 m/uL (4.30-5.90); RDW 13.1 % (11.5-15.5); WBC 8.1 k/uL (3.8-10.6)
[2021-02-21 01:45] LABS: Albumin 4.1 g/dL (3.5-5.0); Calcium 9.8 mg/dL (8.4-10.2); Magnesium 1.7 mg/dL (1.6-2.3); Phosphorus 3.6 mg/dL (2.5-4.5); Potassium 3.4 mmol/L (3.5-5.1); Total Bilirubin 0.8 mg/dL (0.2-1.3); Total Protein 7.1 g/dL (6.3-8.2)
[2021-02-21] MEDS ORDERED: FUROSEMIDE 10 MG/ML 10 ML VIAL IV STA (02:56)
[2021-02-21 03:23] VITALS: BP 105/85; PULSE 87; TEMP 98.7
== END 2021-02-21 03:23 | disposition home or self-care (01) ==
LOC: EC 22:39
DX: M54.59 Other low back pain (principal); R33.9 Retention of urine, unspecified; G89.29 Other chronic pain; I48.91 Unspecified atrial fibrillation; I25.10 Atherosclerotic heart disease of native coronary artery without angina pectoris; J44.9 Chronic obstructive pulmonary disease, unspecified; K21.9 Gastro-esophageal reflux disease without esophagitis; E78.5 Hyperlipidemia, unspecified; I10 Essential (primary) hypertension; I25.2 Old myocardial infarction; M19.90 Unspecified osteoarthritis, unspecified site; Z79.01 Long term (current) use of anticoagulants; Z79.82 Long term (current) use of aspirin; Z95.5 Presence of coronary angioplasty implant and graft; Z87.891 Personal history of nicotine dependence
CPT/HCPCS: 36415; 51702; 80053; 81001; 83735; 83880; 84100; 84484; 85025; 99283

== ENCOUNTER → 2021-02-25 | Outpatient (CLI) | payer MEDICARE ==
--- NOTE | 2021-02-25 13:31 | XR ---
EXAMINATION TYPE: XR chest 2V DATE OF EXAM: 02/25/2021 COMPARISON: 03/31/2016 HISTORY: 70-year-old male Z01.818, presurgical evaluation prior to lumbar spine surgery. TECHNIQUE: AP and lateral views FINDINGS: Heart upper limits of normal in size. Mild hyperinflation. Slight nodular prominence at the right bas e could represent summation artifact. No consolidation or pleural effusion. Suture anchors in both hu meral heads from prior cuff repair. IMPRESSION: 1. Mild hyperinflation may relate to depth of inspiration or underlying emphysema. 2. Either summation artifact or a nodule at the right base. CT chest recommended to further evaluate.
[2021-02-25 14:12] LABS: Basophils % (A) 1 %; Eosinophils # (A) 0.2 k/uL (0-0.7); Eosinophils % (A) 3 %; HCT 37.9 % (39.0-53.0); HGB 12.5 gm/dL (13.0-17.5); Lymphocytes # (A) 0.8 k/uL (1.0-4.8); Lymphocytes % (A) 11 %; MCH 32.1 pg (25.0-35.0); MCV 97.3 fL (80.0-100.0); Monocytes # (A) 0.5 k/uL (0-1.0); Monocytes % (A) 6 %; Neutrophils # (A) 5.8 k/uL (1.3-7.7); Neutrophils % (A) 79 %; Platelet Count 289 k/uL (150-450); RBC 3.89 m/uL (4.30-5.90); WBC 7.4 k/uL (3.8-10.6)
[2021-02-25 14:36] LABS: Calcium 9.3 mg/dL (8.4-10.2)
[2021-02-25 14:47] LABS: Bacteria,Urine Rare /hpf; Hyaline Casts,Urine 7 /lpf (0-2); Mucus,Urine Rare /hpf; RBC,Urine 161 /hpf (0-5); Squamous Epithelial Cell,Urine <1 /hpf (0-4); WBC,Urine 80 /hpf (0-5)
[2021-02-25 14:51] LABS: INR 2.4 (<1.2); Partial Thromboplastin Time 32.7 sec (22.0-30.0); Prothrombin Time 23.1 sec (9.0-12.0)
[2021-02-25 14:59] LABS: Appearance,Urine Cloudy (Clear); Bilirubin,Urine Negative (Negative); Blood,Urine Large (Negative); Color,Urine Yellow; Glucose,Urine (UA) Negative (Negative); Ketones,Urine Negative (Negative); Leukocyte Esterase,Urine Large (Negative); Nitrite,Urine Negative (Negative); PH, Urine 5.5 (5.0-8.0); Protein,Urine 1+ (Negative)
== END | disposition home or self-care (01) ==
LOC: LABWHC1 12:55
PROVIDERS: ATTEND Orthopaedic Surgery Orthopaedic Surgery of the Spine
DX: Z01.818 Encounter for other preprocedural examination (principal); M48.00 Spinal stenosis, site unspecified
CPT/HCPCS: 36415; 71046; 80048; 81001; 85025; 85610; 85730

== ENCOUNTER → 2021-03-10 | Outpatient (CLI) | payer MEDICARE ==
[2021-03-11 00:21] LABS: Albumin 4.1 g/dL (3.8-4.9); Albumin/Globulin Ratio 1.65 (1.60-3.17); Anion Gap 14.5 mmol/L (4.00-12.00); BUN/Creat Ratio 26.43 Ratio (12.00-20.00); Blood Urea Nitrogen 24.1 mg/dL (9.0-27.0); Calcium 9.4 mg/dL (8.7-10.3); Carbon Dioxide 26.8 mmol/L (21.6-31.8); Globulin 2.5 g/dL (1.6-3.3); Non-African American GFR(CKD) 83.7 (60.0-200.0); Potassium 3.3 mmol/L (3.5-5.5); Total Bilirubin 0.6 mg/dL (0.30-1.20); Total Protein 6.5 g/dL (6.2-8.2)
== END | disposition home or self-care (01) ==
LOC: LABWHC1 14:09
PROVIDERS: ATTEND Orthopaedic Surgery Orthopaedic Surgery of the Spine
DX: Z01.812 Encounter for preprocedural laboratory examination (principal)
CPT/HCPCS: 36415; 80053; 86850; 86900; 86901; 87070

== ENCOUNTER → 2021-03-27 | Outpatient (CLI) | payer MEDICARE ==
[2021-03-27 12:20] LABS: Basophils # (A) 0.1 k/uL (0-0.2); Basophils % (A) 1 %; Eosinophils # (A) 0.4 k/uL (0-0.7); Eosinophils % (A) 5 %; HGB 12.2 gm/dL (13.0-17.5); Lymphocytes % (A) 12 %; MCH 31.8 pg (25.0-35.0); MCV 96.3 fL (80.0-100.0); Monocytes # (A) 0.5 k/uL (0-1.0); Monocytes % (A) 6 %; Neutrophils # (A) 6.2 k/uL (1.3-7.7); Neutrophils % (A) 75 %; Platelet Count 351 k/uL (150-450); RBC 3.84 m/uL (4.30-5.90); RDW 12.5 % (11.5-15.5); WBC 8.2 k/uL (3.8-10.6)
[2021-03-27 12:34] LABS: Partial Thromboplastin Time 23.8 sec (22.0-30.0); Prothrombin Time 10.7 sec (9.0-12.0)
[2021-03-27 12:41] LABS: ALT 22 U/L (4-49); AST 28 U/L (17-59); African American GFR (CKD) >90 (>60 ml/min/1.73 sqM); Albumin 3.7 g/dL (3.5-5.0); Alkaline Phosphatase 92 U/L (38-126); Anion Gap 8 mmol/L; Blood Urea Nitrogen 17 mg/dL (9-20); Calcium 9.5 mg/dL (8.4-10.2); Carbon Dioxide 31 mmol/L (22-30); Chloride 98 mmol/L (98-107); Glucose 103 mg/dL (74-99); Non-African American GFR(CKD) 83 (>60 ml/min/1.73 sqM); Potassium 3.5 mmol/L (3.5-5.1); Sodium 137 mmol/L (137-145); Total Bilirubin 0.9 mg/dL (0.2-1.3); Total Protein 6.8 g/dL (6.3-8.2)
== END | disposition home or self-care (01) ==
LOC: LABPAT 11:16
PROVIDERS: ATTEND Orthopaedic Surgery Orthopaedic Surgery of the Spine
DX: Z01.812 Encounter for preprocedural laboratory examination (principal); M48.00 Spinal stenosis, site unspecified
CPT/HCPCS: 80053; 85025; 85610; 85730

== ENCOUNTER 2021-03-31 11:17 | Inpatient (IN) | payer MEDICARE ==
[2021-03-26 15:40] VITALS: BMI 32.5
[~2021-03-31 11:17] MED LIST changes: +DEXAMETHASONE SOD PHOSPHATE 4 MG/ML 1 ML VIAL IV ONE; -LACTATED RINGERS 1,000 ML IV SCH; +MIDAZOLAM 2 MG/2 ML VIAL IV PRN; +ONDANSETRON 4 MG/2 ML VIAL IVP ONE; +ceFAZolin 1,000 MG in SODIUM CHLORIDE 0.9% IRRIGATIO 1,000 ML IRRIGATION PRN
[2021-03-31] MEDS: LACTATED RINGERS 1,000 ML IV SCH (12:10)
[2021-03-31] MEDS ORDERED: MIDAZOLAM 2 MG/2 ML VIAL IVP ONE (12:26)
[2021-03-31 12:46] LABS: INR 0.9 (<1.2); Prothrombin Time 10.1 sec (9.0-12.0)
[2021-03-31] MEDS ORDERED: NEOSTIGMINE 1 MG/ML 10 ML VIAL ONE (13:26)
[2021-03-31] MEDS ORDERED: ETOMIDATE 2 MG/ML 10 ML VIAL ONE (13:26)
[2021-03-31] MEDS ORDERED: ePHEDrine 50 MG/ML 1 ML AMP ONE (13:26)
[2021-03-31] MEDS ORDERED: GLYCOPYRROLATE 0.2 MG/ML 2 ML VIAL ONE (13:26)
[2021-03-31] MEDS ORDERED: MIDAZOLAM 2 MG/2 ML VIAL ONE (13:26)
[2021-03-31] MEDS ORDERED: SODIUM CHLORIDE 0.9% IRRIG 1,000 ML BTL IRRIGATION ONE (13:26)
[2021-03-31] MEDS ORDERED: HYDROmorphone (PF) 1 MG/ML ONE (13:26)
[2021-03-31] MEDS ORDERED: ROCURONIUM 10 MG/ML (5 ML VIAL) IV ONE (13:26)
[2021-03-31] MEDS ORDERED: PHENYLEPHRINE-0.9% NACL SYG 1,000 MCG/10 ML SYRINGE ONE (13:26)
[2021-03-31] MEDS ORDERED: KETAMINE 10 MG/ML 20 ML VIAL ONE (13:26)
[2021-03-31] MEDS ORDERED: LIDOCAINE 1% INJ 10MG/ML (20 ML MDV) ONE (13:26)
[2021-03-31] MEDS ORDERED: fentaNYL (PF) 50 MCG/ML 2 ML AMP ONE (13:26)
[2021-03-31] MEDS ORDERED: HEPARIN SODIUM,PORCINE 10,000 UNIT/ML 1 ML VIAL ONE (13:26)
[2021-03-31] MEDS ORDERED: SUCCINYLCHOLINE CHLORIDE 100 MG/5 ML SYR IV ONE (13:26)
[2021-03-31] MEDS ORDERED: BUPIVACAIN-EPI 0.25%-1:200,000 30 ML VIAL SQ ONE (14:14)
[2021-03-31] MEDS ORDERED: ceFAZolin 1,000 MG in SODIUM CHLORIDE 0.9% 1,000 ML IRRIGATION ONE (14:15)
[2021-03-31] MEDS ORDERED: SODIUM CHLORIDE 0.9% 1,000 ML IV ONE (14:40)
[2021-03-31] MEDS ORDERED: LACTATED RINGERS 1,000 ML IV ONE ×3 (14:41→18:14)
[2021-03-31] MEDS ORDERED: ONDANSETRON 4 MG/2 ML VIAL IVP PRN (18:54)
[2021-03-31] MEDS ORDERED: NA PHOS,M-B/NA PHOS,DI-BA 133 ML ENEMA RECTAL PRN (18:54)
[2021-03-31] MEDS ORDERED: SENNOSIDES-DOCUSATE SODIUM 1 EACH TAB PO PRN (18:54)
[2021-03-31] MEDS ORDERED: HYDROmorphone 0.5 MG/0.5 ML SYRINGE IVP PRN (18:54)
[2021-03-31] MEDS ORDERED: CYCLOBENZAPRINE 10 MG TAB PO PRN ×2 (18:54→18:56)
[2021-03-31] MEDS ORDERED: FAMOTIDINE 20 MG TAB PO PRN (18:56)
--- NOTE | 2021-03-31 19:09 | P.OP ---
Date of Procedure: 03/31/21 Preoperative Diagnosis: Degenerative scoliosis, severe spinal stenosis L2-3 L3 4 L4 5 L5-S1, urinary retention, lower extremity weakness, low back pain, lower extremity radiculopathy, spinal stenosis, facet arthrosis Postoperative Diagnosis: Degenerative scoliosis, severe spinal stenosis L2-3 L3 4 L4 5 L5-S1, urinary retention, lower extremity weakness, low back pain, lower extremity radiculopathy, spinal stenosis, facet arthrosis, plus possible necrotic tissue at the interlaminar space at L3 4 Anesthesia: GETA Pathology: other (L3 4 interlaminar tissue from decompression and culture from L3 4 sent to pathology and microbiology) Condition: stable Disposition: PACU Description of Procedure: BRIEF OPERATIVE NOTE Preoperative Diagnosis:Degenerative scoliosis, severe spinal stenosis L2-3 L3 4 L4 5 L5-S1, urinary retention, lower extremity weakness, low back pain, lower extremity radiculopathy, spinal stenosis, facet arthrosis Postoperative Diagnosis:Degenerative scoliosis, severe spinal stenosis L2-3 L3 4 L4 5 L5-S1, urinary retention, lower extremity weakness, low back pain, lower extremity radiculopathy, spinal stenosis, facet arthrosis, plus findings of necrotic denuded tissue at the intralaminar space of L3 4 Procedure: Wide bilateral foraminotomies decompression partial facetectomy and Laminectomy and decompression L2-3 L3 4 L4 5 L5-S1 Posterior lateral decompression and fusion L2-3 L3 4 L4 5 L5- S1 Use of intraoperative Ziehm CT navigation for placement of pedicle screws L2- L3 L4-L5 and S1 Local autogenous bone grafting , harvesting of bone marrow aspirate Use of Cell Saver Use of bone graft extenders Use of dropped of neuro monitoring neuro monitoring Surgeon: Dr. Kumari [facility] Technical Writer: Kris Tripathi is present throughout the entire the case persistence during positioning, dissection, exposure, visualization, and all crucial elements of the case as well as closure. Anesthesia: General anesthesia Estimated blood loss: Approximately 1300 mL with 350 given back through Cell Saver and approximately 1000 mL of urine output Complications: None apparent Components implanted: K2M the wrist solid pedicle screw system with 10 screws measuring 5.5 6.5 and 7.5 mm in diameter and 2 rods each measuring 110 mm in length and one cross-link with 30 mL of DBX bony boats and Bio4 bone graft enhancement to supplemental local autogenous bone graft Disposition: To recovery room in good stable condition. OPERATIVE INDICATIONS The patient has had long-standing issues in their lower back and lower extremities. She's been having severe worsening over the past several months and was having weakness in his lower extremities. He is actually been limiting his motion and been using a wheelchair past few months. He has been having worsening of his strength in his lower extremities and has been having urinary retention. He has a number of medical issues and was not able to undergo intervention due to his multiple medical issues and need for stabilization with those. He was found have severe stenosis at his lumbar spine with degenerative scoliosis. His stenosis correlate with number of his symptoms at his low back and lower extremities. He is difficult to determine if he had urinary retention from his stenosis. The patient has been through conservative treatment. He had not had any significant benefit despite despite aggressive conservative treatment past. The patient has been in a wheelchair and has had an indwelling Omnaco for the past couple of weeks. He had multiple he urinary tract infections which have been treated as well. He has a number of medical issues which needed stabilization prior to undergoing surgery of this magnitude. We discussed various treatment options including surgery, and the patient wishes to proceed with surgery We discussed the risk, patient's alternatives and benefits of surge ry including but not limited to, risk of bleeding risk of infection, risk of need for further surgery, risk of decreased, loss of motion, muscle function, malunion nonunion, hardware failure, nerve damage, paralysis, heart attack, blindness and . OPERATIVE SUMMARY After discussing all the risks, patient alternatives and benefits at length, the patient elected to proceed with surgical intervention, signed informed consent, and presented for their procedure. The patient was seen and examined in the preoperative holding area and the surgical site was marked. The patient was given antibiotics and brought to the operating room. The patient was sedated and intubated by anesthesia in standard fashion. The patient was positioned on to the operating room table in a prone position on the appropriate frame which was well-padded and well molded. We were careful to pad any bony prominences and pressure points. We were careful to maintain the patient's cervical spine and good neutral alignment and position throughout. The patient was prepped and draped in a normal standard fashion. An appropriate timeout and keystone protocol performed. We were able to proceed with the surgery. The local wound area was infiltrated with local anesthetic. An incision was made at the midline longitudinally over the appropriate levels from L2 to S1. Dissection was taken down subcutaneously to the level of the fascia which was split midline. Dissection was taken over the lamina bilaterally over the facet joints and to the transverse processes. Intraoperative x-ray was taken which showed a marker at the appropriate level. With the appropriate level positively confirmed, we were able to proceed with placement of the pedicle holes and screws. The patient had all their twitches back. The wound was copiously irrigated and suctioned dry as had been done periodically throughout the case. With dissection was able place a reference guide for the Copperfasten C T navigation device at the spinous process of S1. As placed on bony fixation and held in place well. Were able then draped appropriately and performed a spin for the CT navigation for appropriate navigation guidance. Screw holes were established similarly at each level. A CT-guided sharp awl was used to establish the starting hole. It was palpated and found to have good for pastor and good base. A Steffee probe was used to establish the pedicle hole. The hole was palpated and found to have good for pastor and a good base. The hole was tapped and a CT-guided tap with the appropriate sized tap. The transverse process or sacral ala was decorticated with a high-speed bur. I was able to use these holes to place the appropriate size screw and good alignment and good position with good bony purchase. When the screws were inserted there were stimulated, and found to have no stimulation at 20 mA. was done at L2-L3 L4 5 and S1 bilaterally. Imaging was done and we found have excellent placement of all screws from L2 S1 bilaterally I was able to turn my attention to the decompression. decompression was performed with a combination of rongeurs, curettes, Kerrison rongeurs and a ball-tip feeler. All of the bone that was removed was stripped and morcellized for use as autogenous bone graft later in the case. There is severe central and bilateral foraminal stenosis at each level most significantly at L3 4 and L4 5. This took extra meticulous time to decompress appropriately. At L3 4 there was some evidence of necrotic tissue and denuded tissue at the interlaminar space. I took a culture from that space and passed the products of the laminectomy for further evaluation from the lab. I was able to obtain good central decompression as well as wide bilateral foraminal decompression. I had excellent decompression at each levels. There is no evidence of dural tear or leak. Good hemostasis was maintained. The wound was irrigated and suctioned dry. The wound was irrigated and suctioned dry. With the hardware intact, intraoperative x-ray was again taken which showed good alignment and position of the hardware at the appropriate levels at L2-L3 L4-L5 and S1 with the rods intact and cross-link appropriate we placed. It had excellent stability.. We were then able to measure, contour and place the rods and appropriate hardware bilaterally. I was able to place capcrews, tighten them down, and torque them off appropriately. With this intact I was able to place the local autogenous bone graft with additional bone graft enhancer as necessary into the posterior lateral gutters bilaterally. With the bone graft intact, a stable construct, and good decompression at the appropriate levels, we were able to proceed with closure. Good hemostasis was maintained. There is no evidence of dural tear or leak. The fascia was closed for a watertight closure. The subcutaneous tissue was closed over a superficial drain. The subcuticular tissue was closed with absorbable suture. The wound was cleaned and dried and dressed with the appropriate dressing. The drapes were broken down. The patient was gently rolled back onto their hospital bed being careful to maintain their cervical spine and good neutral alignment and position. They were woken up by anesthesia, extubated, and brought to the recovery room in good stable condition. The patient will be admitted to the hospital for appropriate postoperative care, medical management and monitoring. We will continue to follow them closely about the postoperative course.
[2021-03-31] MEDS: HYDROmorphone 0.5 MG/0.5 ML SYRINGE IVP PRN ×2 (19:25→19:31)
--- NOTE | 2021-03-31 19:33 | FL ---
EXAMINATION TYPE: FL guidance operating room DATE OF EXAM: 03/31/2021 HISTORY: Fluoroscopy time 14 seconds of fluoroscopy provided. IMPRESSION: 1. Fluoroscopy time.
--- NOTE | 2021-03-31 19:39 | XR ---
EXAM TYPE: LUMBAR SPINE X RAY SERIES COMPARISON: NONE HISTORY: Postop TECHNIQUE: 4 views are submitted. FINDINGS: Images are limited due to intraoperative technique and resolution. Appears to be multilevel degenerat umair disc disease of the spine with postsurgical changes. IMPRESSION: 1. Intraoperative.
[2021-03-31] MEDS ORDERED: ALBUTEROL NEBULIZED 1.25 MG/3 ML INHALATION ONE (19:51)
[2021-03-31 20:58] LABS: Glucose,Whole Blood 137 mg/dL (75-99)
[2021-03-31] MEDS: ceFAZolin 3 GM in SODIUM CHLORIDE 0.9% 100 ML IVPB SCH (23:26)
[2021-03-31] MEDS: SODIUM CHLORIDE 0.9% 1,000 ML IV SCH (23:26)
[2021-03-31] MEDS: HYDROmorphone 1 MG/ML 1 ML SYRINGE IVP PRN (23:30)
[2021-04-01] MEDS: METOPROLOL TARTRATE 50 MG TAB PO SCH ×3 (00:02→19:58)
[2021-04-01] MEDS: ATORVASTATIN 40 MG TAB PO SCH ×2 (00:02→19:59)
[2021-04-01] MEDS: amLODIPine 10 MG TAB PO SCH ×2 (00:02→19:59)
[2021-04-01] MEDS: LACTATED RINGERS 1,000 ML IV SCH (00:03)
[2021-04-01] MEDS: HYDROmorphone 1 MG/ML 1 ML SYRINGE IVP PRN ×2 (04:52→15:20)
[2021-04-01 05:10] LABS: Basophils % (A) 0 %; Eosinophils % (A) 0 %; HCT 31.4 % (39.0-53.0); HGB 10.2 gm/dL (13.0-17.5); Hypochromasia Slight; Lymphocytes # (A) 0.6 k/uL (1.0-4.8); Lymphocytes % (A) 4 %; MCH 32.8 pg (25.0-35.0); MCHC 32.6 g/dL (31.0-37.0); MCV 100.6 fL (80.0-100.0); Mean Platelet Volume 7.8; Monocytes # (A) 0.8 k/uL (0-1.0); Monocytes % (A) 6 %; Neutrophils % (A) 90 %; Platelet Count 195 k/uL (150-450); RBC 3.12 m/uL (4.30-5.90); RDW 12.9 % (11.5-15.5); WBC 14.5 k/uL (3.8-10.6)
[2021-04-01 05:13] LABS: Calcium 8.3 mg/dL (8.4-10.2); Potassium 4.1 mmol/L (3.5-5.1)
[2021-04-01] MEDS ORDERED: LOSARTAN 50 MG TAB PO SCH (09:00)
[2021-04-01] MEDS ORDERED: hydroCHLOROthiazide 25 MG TAB PO SCH (09:00)
[2021-04-01] MEDS: HYDROcodone/APAP 7.5-325MG 1 EACH TAB PO PRN ×2 (09:05→19:58)
[2021-04-01] MEDS: SENNOSIDES-DOCUSATE SODIUM 1 EACH TAB PO SCH (09:06)
[2021-04-01] MEDS: ASPIRIN 81 MG PO SCH (09:06)
[2021-04-01] MEDS: ceFAZolin 3 GM in SODIUM CHLORIDE 0.9% 100 ML IVPB SCH (09:06)
--- NOTE | 2021-04-01 09:07 | P.PN ---
Progress Note - Text Progress Note Date: 04/01/21 Orthopedic Spine History of present illness: Patient is a pleasant 70-year-old male who is seen and examined at the bedside following posterior lateral decompression and fusion performed yesterday. Patient states they are doing well post operatively. He states his pain is well-controlled at his lumbar spine. He has not been out of bed yet this morning. Nursing states there has been increased drainage from his drain site and there is some concern that the drain had come out. Patient has a Monaco catheter intact which he states was placed during a visit to the emergency department. He is seen by urology this morning who states they'll plan to keep the Monaco catheter and intact until the day of discharge and then test his ability to void at that time. They will start him on Flomax. They will follow him up in the outpatient setting as well. Currently does not complain of nausea, vomiting, fever, or chills. Patient states pain has been adequately controlled. Patient is eating and voiding freely without difficulty. Physical Exam Lumbar Fusion: Status post surgical day number 1 Patient is awake, alert, and oriented 3 Vital signs stable Good chest excursion with deep inspiration and expiration Dorsiflexion, plantarflexion, and extensor hallucis longus positive sustained bilaterally No signs or symptoms of DVT; no calf pain; pneumatic cuffs intact bilateral lower extremities Optifoam dressings are clean, dry, and intact over the lumbar spine and right iliac crest; no erythema, purulence, or signs of infection Hemovac drain is removing nonstick Telfa and Tegaderm was applied over the drain site Neurovascularly intact bilaterally lower extremities Monaco catheter intact Assessment: Status post L2-3, L3-4, L4-5, and L5-S1 posterior lateral decompression and fusion Low back pain L2-3, L3-4, L4-5, and L5-S1 severe spinal stenosis Degenerative scoliosis Urinary retention Lower extremity weakness Lower extremity radiculopathy Low back pain Hypertension Coronary artery disease Atrial fibrillation Hyperlipidemia Shortness of breath Recent urinary tract infection Monaco catheter placed prior to admission Hard of hearing Obesity Plan: 1. Ambulate as tolerated; work with Physical Therapy to increase mobilization 2. Continue pain control with IV and oral medications 3. Dressings to remain intact with Optifoam; patient may shower with dressings intact; Hemovac drain has been removed 4. Medical management can continue to manage patient for patient's other medical diagnoses including hypertension, coronary artery disease, atrial fibrillation, hyperlipidemia, and shortness of breath 5. Urology will continue C and examined the patient in regards to his urinary retention; they will currently plan to start on Flomax and keep Monaco catheter intact 6. Patient does live at home alone with his . He'll most likely need subacute rehab at the time of discharge. Depending on his progress, this could happen as early as , 04/03/2021. The plan consultation with case management and occupational therapy. 7. Patient can follow-up with Kris Hassan PA-C or Dr. Bryn Kumari at [facility] in 2-3 weeks following discharge
--- NOTE | 2021-04-01 09:28 | P.GSCN ---
History of Present Illness Consult date: 04/01/21 Reason for Consult: urinary retention History of present illness: this is a 70-year-old male that underwent a spinal fusion on March 31. Of note patient was seen in the ER in February for urinary retention, a Monaco catheter was placed for 1 L urinary retention. he does have history of BPH, difficulty voiding at baseline. Denies any gross hematuria or dysuria. He is currently not on any medical therapy for his BPH. no previous surgeries, he has not seen urology in the past Review of Systems - Constitutional Denies fever, Denies weight loss - EENT Ears, nose, mouth and throat: Denies dysphagia - Cardiovascular Denies chest pain, Denies shortness of breath - Gastrointestinal Reports as per HPI - Genitourinary Reports urinary retention, Denies flank pain, Denies hematuria - Integumentary Denies rash, Denies unusual bruising - Neurological Denies headaches, Denies syncope Past Medical History Past Medical History: Atrial Fibrillation, Coronary Artery Disease (CAD), Chest Pain / Angina, COPD, GERD/Reflux, Hearing Disorder / Deafness, Hyperlipidemia, Hypertension, Myocardial Infarction (DE), Musculoskeletal Disorder, Osteoarthritis (OA) Additional Past Medical History / Comment(s): Chronic AFib, DE X2, bilat hearing aids. lower back and hip pain. Monaco catheter x1 month, UTI current. Edema BLE. Last Myocardial Infarction Date:: 03/31/16 History of Any Multi-Drug Resistant Organisms: None Reported Past Surgical History: Heart Catheterization With Stent, Orthopedic Surgery Additional Past Surgical History / Comment(s): Cardiac stents X3, bilateral carpal tunnel repair, bilateral rotator cuff repair, bilateral cataract removal. Past Anesthesia/Blood Transfusion Reactions: Postoperative Nausea & Vomiting (PONV) Additional Past Anesthesia/Blood Transfusion Reaction / Comm: PONV x1. Date of Last Stent Placement:: 05/14/16 Smoking Status: Former smoker - Past Family History Father Family Medical History: Myocardial Infarction (DE) Additional Family Medical History / Comment(s): Father of a DE at the age of 62 yrs. Mother Family Medical History: Diabetes Mellitus, Renal Disease Additional Family Medical History / Comment(s): Mother at the age of 67yrs from renal failure. Brother(s) Family Medical History: Congestive Heart Failure (CHF) Additional Family Medical History / Comment(s): Pt has 3 brothers that had CHF. Medications and Allergies Home Medications Medication Instructions Recorded Confirmed Type Metoprolol Tartrate [Lopressor] 50 mg PO BID 03/31/16 03/31/21 History amLODIPine [Norvasc] 10 mg PO HS 03/31/16 03/31/21 History Aspirin 81 mg PO DAILY chew 04/04/16 03/31/21 Rx Atorvastatin [Lipitor] 40 mg PO HS 11/08/19 03/31/21 History Losartan Potassium 100 mg PO QAM 11/08/19 03/31/21 History hydroCHLOROthiazide 25 mg PO QAM 11/08/19 03/31/21 History Albuterol Inhaler [Ventolin Hfa 1 puff IN DIRECTED PRN 03/10/21 03/31/21 History Inhaler] HYDROcodone/APAP 5-325MG [[place] 1 tab PO TID PRN 03/10/21 03/31/21 History 5-325] Warfarin [Coumadin] 2.5 mg PO HS 03/10/21 03/31/21 History Ciprofloxacin HCl [Cipro] 500 mg PO BID 03/26/21 03/31/21 History Cyclobenzaprine [Flexeril] 10 mg PO BID PRN 03/26/21 03/31/21 History Famotidine [Pepcid AC] 10 mg PO DIRECTED PRN 03/27/21 03/31/21 History Allergies Allergy/AdvReac Type Severity Reaction Status Date / Time venom-honey bee AdvReac Anaphylaxis Verified 03/31/21 11:59 Surgical - Exam Vital Signs Temp Pulse Resp BP Pulse Ox 98.6 F 80 16 133/81 98 03/31/21 12:03 03/31/21 12:03 03/31/21 12:03 03/31/21 12:03 03/31/21 12:03 - General no distress, no pain - Eyes PERRL, normal ocular movement - ENT normal nares, normal mucosa - Respiratory normal expansion, normal respiratory effort - Psychiatric oriented to time, oriented to person, oriented to place Results - Labs 04/01/21 04:02 04/01/21 04:02 Abnormal Lab Results - Last 24 Hours (Table) 03/31/21 04/01/21 04/01/21 Range/Units 20:50 04:02 04:02 WBC 14.5 H (3.8-10.6) k/uL RBC 3.12 L (4.30-5.90) m/uL Hgb 10.2 L (13.0-17.5) gm/dL Hct 31.4 L (39.0-53.0) % MCV 100.6 H (80.0-100.0) fL Neutrophils # 13.0 H (1.3-7.7) k/uL Lymphocytes # 0.6 L (1.0-4.8) k/uL BUN 23 H (9-20) mg/dL Creatinine 1.34 H (0.66-1.25) mg/dL Glucose 170 H (74-99) mg/dL POC Glucose (mg/dL) 137 H (75-99) mg/dL Calcium 8.3 L (8.4-10.2) mg/dL Microbiology - Last 24 Hours (Table) 03/31/21 17:50 Gram Stain - Preliminary Back Wound Culture - Preliminary 03/31/21 17:50 Anaerobic Culture - Preliminary Back Diabetes panel 04/01/21 Range/Units 04:02 Sodium 139 (137-145) mmol/L Potassium 4.1 (3.5-5.1) mmol/L Chloride 101 (98-107) mmol/L Carbon Dioxide 23 (22-30) mmol/L BUN 23 H (9-20) mg/dL Creatinine 1.34 H (0.66-1.25) mg/dL Glucose 170 H (74-99) mg/dL Calcium 8.3 L (8.4-10.2) mg/dL Calcium panel 04/01/21 Range/Units 04:02 Calcium 8.3 L (8.4-10.2) mg/dL Pituitary panel 04/01/21 Range/Units 04:02 Sodium 139 (137-145) mmol/L Potassium 4.1 (3.5-5.1) mmol/L Chloride 101 (98-107) mmol/L Carbon Dioxide 23 (22-30) mmol/L BUN 23 H (9-20) mg/dL Creatinine 1.34 H (0.66-1.25) mg/dL Glucose 170 H (74-99) mg/dL Calcium 8.3 L (8.4-10.2) mg/dL Adrenal panel 04/01/21 Range/Units 04:02 Sodium 139 (137-145) mmol/L Potassium 4.1 (3.5-5.1) mmol/L Chloride 101 (98-107) mmol/L Carbon Dioxide 23 (22-30) mmol/L BUN 23 H (9-20) mg/dL Creatinine 1.34 H (0.66-1.25) mg/dL Glucose 170 H (74-99) mg/dL Calcium 8.3 L (8.4-10.2) mg/dL Assessment and Plan Assessment: this is a 70-year-old male underwent spinal fusion yesterday. Patient had a urinary retention preoperatively, a Monaco catheter was placed in the ER in February. He has not seen urology, is not currently on any medical therapy for his BPH. Does have obstructive symptoms at baseline. -We'll start on Flomax 0.4 mg twice a day -Monaco can be removed prior to discharge, if his PVR is greater than 300 mL reinsert Monaco, and can be discharged to rehab with the Monaco catheter at that time -We'll plan on seeing him as an outpatient in 2 weeks
[2021-04-01 09:41] LABS: INR 0.99 (0.90-1.11); Prothrombin Time 11.2 sec (9.9-11.9)
[2021-04-01] MEDS: SODIUM CHLORIDE 0.9% 1,000 ML IV SCH ×2 (15:34→17:39)
[2021-04-01] MEDS: ALBUTEROL NEBULIZED 2.5 MG/3 ML INHALATION PRN (15:41)
--- NOTE | 2021-04-01 16:58 | CONS ---
CONSULTATION REASON FOR CONSULTATION: Advice regarding atrial fibrillation and other medical issues requested by Dr. Kumari. HISTORY OF PRESENT ILLNESS: This 70-year-old gentleman with a past medical history of atrial fibrillation, history of CAD, history of COPD, GERD, and multiple medical problems being followed by Dr. Espinoza in the outpatient setting, underwent decompression laminectomy of L2-3, L3- 4, L4-5, L5-L7 segments. The patient tolerated the procedure well. There is no history of fever, rigors or chills. No history of headache, loss of consciousness or seizures at this time. PAST MEDICAL HISTORY: Atrial fibrillation, history of CAD, chest pain, COPD, GERD, hypertension, hyperlipidemia. MEDICATIONS: Home medications are: Hydrochlorothiazide, Norvasc, Coumadin, Lopressor, losartan, [place], Pepcid, Flexeril, Cipro, Lipitor, aspirin, albuterol inhaler. Doses reviewed. ALLERGIES: HONEY BEE VENOM. FAMILY HISTORY: History of myocardial infarction in the family. SOCIAL HISTORY: No history of alcohol intake. Previous history of smoker. REVIEW OF SYSTEMS: ENT: No diminished vision. No diminished hearing. CARDIOVASCULAR: No angina. No palpitations. RESPIRATION: No cough or hemoptysis. GI as mentioned earlier. : No dysuria. NERVOUS SYSTEM: No numbness or weakness. ALLERGY/IMMUNOLOGY: No asthma. No hayfever. MUSCULOSKELETAL: As mentioned earlier. HEMATOLOGY/ONCOLOGY: No history of anemia. ENDOCRINE: No history of diabetes or hypothyroidism. CONSTITUTIONAL: As mentioned earlier. DERMATOLOGY negative. RHEUMATOLOGY: Negative. CONSTITUTIONAL: As mentioned earlier. PHYSICAL EXAMINATION: Patient is alert, oriented times three. Pulse is 110, blood pressure 119/61, respiration 17, temp 97.9, pulse ox 98% on 2 L. HEENT: Conjunctivae normal. NECK: No JVD. CARDIOVASCULAR: S1, S2 muffled. RESPIRATION: Breath sounds diminished in the bases. A few scattered rhonchi. ABDOMEN: Soft, nontender. No mass palpable. LEGS: No edema. No swelling. NERVOUS SYSTEM: Higher functions as mentioned earlier. Moves all four limbs. No focal motor or sensory deficits. LYMPHATICS: No lymph nodes palpable in the neck, axillae or groin. SKIN: No ulcer, no rash and no bleeding. Examination of the back status post surgery. LABS: WBC 14.2, hemoglobin 10.2, creatinine 1.34. ASSESSMENT: 1. Status post laminectomy decompression, L2 to S1 for severe degenerative joint disease and spinal stenosis. 2. Increased creatinine with mild acute renal failure. 3. Increased WBC. 4. Anemia. 5. Increased MCV. 6. Increased random blood sugar. 7. History atrial fibrillation. 8. History of coronary artery disease. 9. History of chest pain, angina. 10.History of chronic obstructive pulmonary disease. 11.Gastroesophageal reflux disease. 12.History of deafness. 13.Hypertension. 14.Hyperlipidemia. 15.History of myocardial infarction. 16.History of degenerative joint disease. 17.History of chronic atrial fibrillation. 18.History of Monaco catheter. 19.History of recurrent urinary tract infection. 20.History of bilateral leg edema. 21.History of coronary artery disease/stent. 22.Remote history of nicotine dependence. 23.FULL CODE. 24.Obesity with body mass 33.4. RECOMMENDATIONS AND DISCUSSION: This 70-year-old gentleman who presented with multiple complex medical issues, at this time, I recommend to continue the current medications, management and symptomatic treatment, IV fluids. Monitor creatinine closely. Avoid nephrotoxic medications. We will follow the patient closely and resume the home medications. Thank you Dr. Kumari for letting us participate in the care of this patient. The patient may be asked to follow up with Dr. Espinoza closely after discharge. MMKAITLYNNL / KAISEN: [id number] / MTDD
[2021-04-01] MEDS ORDERED: WARFARIN 5 MG TAB PO ONE (18:00)
[2021-04-01] MEDS: TAMSULOSIN 0.4 MG CAP.ER.24H PO SCH (19:58)
[2021-04-01 20:17] LABS: Appearance,Urine Clear (Clear); Bacteria,Urine Rare /hpf; Bilirubin,Urine Negative (Negative); Blood,Urine Small (Negative); Color,Urine Light Yellow; Glucose,Urine (UA) Negative (Negative); Hyaline Casts,Urine 3 /lpf (0-2); Ketones,Urine Negative (Negative); Leukocyte Esterase,Urine Negative (Negative); Mucus,Urine Rare /hpf; Nitrite,Urine Negative (Negative); Protein,Urine Trace (Negative); RBC,Urine 2 /hpf (0-5); Specific Gravity,Urine 1.013 (1.001-1.035); Urobilinogen,Urine <2.0 mg/dL (<2.0); WBC,Urine 2 /hpf (0-5)
[2021-04-02] MEDS: HYDROmorphone 1 MG/ML 1 ML SYRINGE IVP PRN (02:24)
[2021-04-02 05:57] LABS: Basophils % (A) 0 %; Eosinophils % (A) 0 %; HCT 27.9 % (39.0-53.0); HGB 8.8 gm/dL (13.0-17.5); Hypochromasia Slight; Lymphocytes # (A) 0.9 k/uL (1.0-4.8); Lymphocytes % (A) 6 %; MCH 32.2 pg (25.0-35.0); MCHC 31.7 g/dL (31.0-37.0); MCV 101.7 fL (80.0-100.0); Macrocytosis Slight; Mean Platelet Volume 7.3; Monocytes # (A) 0.7 k/uL (0-1.0); Monocytes % (A) 5 %; Neutrophils # (A) 12.8 k/uL (1.3-7.7); Neutrophils % (A) 87 %; Platelet Count 188 k/uL (150-450); RBC 2.75 m/uL (4.30-5.90); RDW 13.3 % (11.5-15.5); WBC 14.7 k/uL (3.8-10.6)
[2021-04-02] MEDS: HYDROcodone/APAP 7.5-325MG 1 EACH TAB PO PRN ×3 (07:14→22:32)
[2021-04-02] MEDS: LACTATED RINGERS 1,000 ML IV SCH (07:14)
[2021-04-02] MEDS: METOPROLOL TARTRATE 50 MG TAB PO SCH ×2 (08:06→22:32)
[2021-04-02] MEDS: ASPIRIN 81 MG PO SCH (08:06)
[2021-04-02] MEDS: TAMSULOSIN 0.4 MG CAP.ER.24H PO SCH ×2 (08:06→21:12)
[2021-04-02] MEDS: SENNOSIDES-DOCUSATE SODIUM 1 EACH TAB PO SCH (08:07)
[2021-04-02] MEDS: SODIUM CHLORIDE 0.9% 1,000 ML IV SCH ×2 (08:10→21:10)
[2021-04-02 09:43] LABS: INR 1.1 (0.90-1.11)
--- NOTE | 2021-04-02 11:09 | P.PN ---
Progress Note - Text Progress Note Date: 04/02/21 Orthopedic Spine History of present illness: Patient is a pleasant 70-year-old male who is seen and examined at the bedside following posterior lateral decompression and fusion performed Wednesday. He is seen and examined at the bedside by myself and Dr. Bryn Kumari. Patient states they are doing well post operatively. He has been able to transfer to a bedside chair. He states his pain is well-controlled at his lumbar spine. He has been able to work with physical therapy to increase his mobility. He continues to be seen and examined by urology who is planning to keep the [place] catheter and intact until the day of discharge and then test his ability to void at that time. They will start him on Flomax. They will follow him up in the outpatient setting as well. Currently does not complain of nausea, vomiting, fever, or chills. Patient states pain has been adequately controlled. Patient is eating and voiding freely without difficulty. Physical Exam Lumbar Fusion: Status post surgical day number 2 Patient is awake, alert, and oriented 3 Vital signs stable Good chest excursion with deep inspiration and expiration Dorsiflexion, plantarflexion, and extensor hallucis longus positive sustained bilaterally No signs or symptoms of DVT; no calf pain; pneumatic cuffs intact bilateral lower extremities Patient is able to lift legs independently off the bed bilaterally but is weaker on the right than the left Optifoam dressings are clean, dry, and intact over the lumbar spine and right iliac crest; no erythema, purulence, or signs of infection Neurovascularly intact bilaterally lower extremities [place] catheter intact Assessment: Status post L2-3, L3-4, L4-5, and L5-S1 posterior lateral decompression and fusion Low back pain L2-3, L3-4, L4-5, and L5-S1 severe spinal stenosis Degenerative scoliosis Urinary retention Lower extremity weakness Lower extremity radiculopathy Low back pain Hypertension Coronary artery disease Atrial fibrillation Hyperlipidemia Shortness of breath Recent urinary tract infection [place] catheter placed prior to admission Hard of hearing Obesity Plan: 1. Ambulate as tolerated; work with Physical Therapy to increase mobilization; patient is encouraged to use a walker to aid in ambulation 2. Continue pain control with IV and oral medications; we will wean the patient off IV narcotic pain medication in to see patient for discharge over the next 1- 2 days 3. Dressings to remain intact with Optifoam; patient may shower with dressings intact 4. Medical management can continue to manage patient for patient's other medical diagnoses including hypertension, coronary artery disease, atrial fibrillation, hyperlipidemia, and shortness of breath 5. Urology will continue to see and examine the patient in regards to his urinary retention; they will currently plan to start on Flomax and keep Mon[place] catheter intact 6. Patient does live at home alone with his . He'll most likely need subacute rehab at the time of discharge. We may also plan for discharge to inpatient rehab or even the possibility of discharge home with home care. Options have been discussed in detail with the patient and the patient's . Patient will plan to discuss options in detail between the patient and his family. Consultation has been placed for case management, social work, and also Dr. Elizabeth for evaluation for possible inpatient rehab. Depending on his progress, this could happen as early as , 04/03/2021. 7. Patient can follow-up with Kirs Hassan PA-C or Dr. Bryn Kumari at [facility] in 2-3 weeks following discharge
[2021-04-02 11:20] LABS: African American GFR (CKD) 98.5 (60.0-200.0); Anion Gap 13.8 mmol/L (10.00-18.00); BUN/Creat Ratio 17.89 Ratio (12.00-20.00); Blood Urea Nitrogen 16.1 mg/dL (9.0-27.0); Calcium 8.2 mg/dL (8.7-10.3); Carbon Dioxide 23.2 mmol/L (20.0-27.5); Potassium 3.9 mmol/L (3.5-5.5)
[2021-04-02] MEDS: ALBUTEROL NEBULIZED 2.5 MG/3 ML INHALATION PRN (15:37)
--- NOTE | 2021-04-02 17:35 | PN ---
PROGRESS NOTE DATE OF SERVICE: 04/02/2021 This 70-year-old gentleman who was admitted with laminectomy and decompression of L2 to S1 for severe DJD and spinal canal stenosis is being closely monitored. No chest pain. No palpitations. No fever. PHYSICAL EXAMINATION: Alert and oriented x3. Pulse is 96, blood pressure 98/60, respiration 20, temperature 96.4, pulse ox 98% on 3 L. HEENT: Conjunctivae normal. NECK: No jugular venous distention. CARDIOVASCULAR: S1, S2 muffled. RESPIRATION: Breath sounds diminished at the bases. No rhonchi. No crackles. ABDOMEN: Soft, nontender. LEGS: No edema. No swelling. NERVOUS SYSTEM: No focal deficit. EXAMINATION OF THE BACK: Status post surgery. LABS: WBC 14.6, hemoglobin is 8.8. UA is unremarkable. Calcium is 8.2, glucose 170. ASSESSMENT: 1. Status post laminectomy and decompression, L2 to S1, with severe degenerative joint disease and spinal canal stenosis. 2. Increased creatinine with mild acute renal failure. 3. Relative hypotension. 4. Increased white count. 5. Anemia. 6. Increased mean corpuscular volume. 7. Increased random glucose. 8. History of atrial fibrillation. 9. History of coronary artery disease. 10.History of chest pain, angina. 11.Chronic obstructive pulmonary disease. 12.Gastroesophageal reflux disease. 13.History of deafness. 14.Hypertension. 15.Hyperlipidemia. 16.History of myocardial infarction. 17.History of degenerative joint disease. 18.History of chronic atrial fibrillation. 19.History of [place] catheter. 20.History of recurrent urinary tract infection. 21.History of bilateral leg edema. 22.History of coronary artery disease, stent. 23.Remote history of nicotine dependence. 24.Obesity with body mass index of 33.5. 25.FULL CODE. RECOMMENDATIONS AND DISCUSSION: I recommend to continue current medications, continue with the monitoring, symptomatic treatment. Repeat labs tomorrow. I would also recommend a chest x-ray to complete the workup. Otherwise, blood cultures and urine culture. There is no obvious infection in the urine analysis at this time. Will continue to monitor. The white count remains elevated. Further recommendations to follow. MMODL / IJN: [id number] /
--- NOTE | 2021-04-02 17:49 | XR ---
EXAMINATION TYPE: XR chest 1V portable DATE OF EXAM: 04/02/2021 COMPARISON: 02/25/2021 HISTORY: Cough TECHNIQUE: Single frontal view of the chest is obtained. FINDINGS: There is no focal air space opacity, pleural effusion, or pneumothorax seen. The cardiac silhouette size is within normal limits. The osseous structures are intact. IMPRESSION: No acute process.
[2021-04-02] MEDS ORDERED: WARFARIN 5 MG TAB PO ONE (18:00)
[2021-04-02] MEDS ORDERED: WARFARIN 2.5 MG TAB PO SCH (21:00)
[2021-04-02] MEDS: ATORVASTATIN 40 MG TAB PO SCH (21:10)
[2021-04-02] MEDS: amLODIPine 10 MG TAB PO SCH (22:31)
--- NOTE | 2021-04-03 05:56 | P.CONS ---
History of Present Illness - Chief Complaint Gait disturbance - History of Present Illness I had the opportunity to see patient for inpatient rehab consultation with regard to gait disturbance. He is admitted to [facility] March 31 with lumbar stenosis, bilateral radiculopathies, for lumbar fusion performed by Dr. Robbins. Seen by Dr. Thomas for urinary retention. Has started therapies. PT reports moderate assistance for grooming mobility and minimal assistance to stand and transfer. OT reports minimal assistance for upper dressing, maximal assistance for lower dressing, bathing and toileting and two-person moderate assistance for transfer. Previous functional history as elicited from patient: 70-year-old right-handed white male who is lives in one form with . Both are retired. does the cooking laundry. Patient dependent driving, sponge bath and mobility with power chair. PCP Dr. Espinoza. Denies tobacco or alcohol. Review of Systems Review of systems: ENT: Denies sneezes or discharge. Eyes: Denies discharge or photophobia. Cardiac: Denies chest pain or palpitation. Pulmonary: Denies cough or shortness of breath. Gastrointestinal: Denies nausea, emesis, constipation, diarrhea. Genitourinary: Denies discharge or frequency. Musculoskeletal: Denies muscle or bone aches. Discomfort which is much improved since surgery. Neurologic: Lower extremity weakness. Endocrine: Denies shakes or sweats. Oncology: Denies cancers. Dermatologic: Denies rash, itching, pruritus. ALLERGY/immunology: Denies sneezes, rashes. Past Medical History Past Medical History: Atrial Fibrillation, Coronary Artery Disease (CAD), Chest Pain / Angina, COPD, GERD/Reflux, Hearing Disorder / Deafness, Hyperlipidemia, Hypertension, Myocardial Infarction ([place]), Musculoskeletal Disorder, Osteoarthritis (OA) Additional Past Medical History / Comment(s): Chronic AFib, [place] X2, bilat hearing aids. lower back and hip pain. [place] catheter x1 month, UTI current. Edema BLE. Last Myocardial Infarction Date:: 03/31/16 History of Any Multi-Drug Resistant Organisms: None Reported Past Surgical History: Heart Catheterization With Stent, Orthopedic Surgery Additional Past Surgical History / Comment(s): Cardiac stents X3, bilateral carpal tunnel repair, bilateral rotator cuff repair, bilateral cataract removal. Past Anesthesia/Blood Transfusion Reactions: Postoperative Nausea & Vomiting (PONV) Additional Past Anesthesia/Blood Transfusion Reaction / Comm: PONV x1. Date of Last Stent Placement:: 05/14/16 Smoking Status: Former smoker - Past Family History Father Family Medical History: Myocardial Infarction ([place]) Additional Family Medical History / Comment(s): Father of a [place] at the age of 62 yrs. Mother Family Medical History: Diabetes Mellitus, Renal Disease Additional Family Medical History / Comment(s): Mother at the age of 67yrs from renal failure. Brother(s) Family Medical History: Congestive Heart Failure (CHF) Additional Family Medical History / Comment(s): Pt has 3 brothers that had CHF. Medications and Allergies Home Medications Medication Instructions Recorded Confirmed Type Metoprolol Tartrate [Lopressor] 50 mg PO BID 03/31/16 03/31/21 History amLODIPine [Norvasc] 10 mg PO HS 03/31/16 03/31/21 History Aspirin 81 mg PO DAILY chew 04/04/16 03/31/21 Rx Atorvastatin [Lipitor] 40 mg PO HS 11/08/19 03/31/21 History Losartan Potassium 100 mg PO QAM 11/08/19 03/31/21 History hydroCHLOROthiazide 25 mg PO QAM 11/08/19 03/31/21 History Albuterol Inhaler [Ventolin Hfa 1 puff IN DIRECTED PRN 03/10/21 03/31/21 His tory Inhaler] HYDROcodone/APAP 5-325MG [[place] 1 tab PO TID PRN 03/10/21 03/31/21 History 5-325] Warfarin [Coumadin] 2.5 mg PO HS 03/10/21 03/31/21 History Ciprofloxacin HCl [Cipro] 500 mg PO BID 03/26/21 03/31/21 History Cyclobenzaprine [Flexeril] 10 mg PO BID PRN 03/26/21 03/31/21 History Famotidine [Pepcid AC] 10 mg PO DIRECTED PRN 03/27/21 03/31/21 History Allergies Allergy/AdvReac Type Severity Reaction Status Date / Time venom-honey bee AdvReac Anaphylaxis Verified 03/31/21 11:59 Physical Exam Vitals: Vital Signs Temp Pulse Pulse Resp BP BP Pulse Ox 04/03/21 04:52 99.1 F 86 20 97/61 95 04/03/21 00:02 100/53 04/02/21 22:26 104/64 04/02/21 21:35 111/73 04/02/21 21:05 95 96/59 04/02/21 19:35 95 22 04/02/21 15:48 112 H 04/02/21 15:38 94 04/02/21 11:25 98.5 F 96 22 98/62 98 Intake and Output 04/02/21 04/02/21 04/03/21 14:59 22:59 06:59 Intake Total 1850 Output Total 950 1000 Balance 900 -1000 Intake: Intake, IV Titration 900 Amount Sodium Chloride 0.9% 1, 900 000 ml @ 75 mls/hr IV . [id number] RICKY Rx#:[id number] Oral 950 Output: Urine 950 1000 Other: Voiding Method Indwelling Catheter Indwelling Catheter Skin: Atrophic, intact. General: Overweight build and comfortable appearance. Head: Normocephalic, atraumatic. Eyes: Symmetric. Pupils equal round. Ears: Symmetric. Hearing within normal limits. Mouth: Clear. Neck: Supple. Carotid without bruit. Cardiac: Regular rate and rhythm. Lungs: Clear anteriorly and posteriorly. Abdomen: Soft active nontender. Extremities: Normal tone. Neurological: Mental status: Alert, cooperative, pleasant. Cranial nerves: Symmetric facial tone and trapezius. Motor: Normal strength and isolation arms. Legs poor or with giveaway weakness due to discomforts. Sensation: Intact throughout. DTRs: Symmetric and equal throughout. Mobility: Sits with assistance. Results CBC & Chem 7: 04/02/21 05:03 04/02/21 05:03 Labs: Abnormal Lab Results - Last 24 Hours (Table) 04/02/21 04/02/21 04/02/21 Range/Units 05:03 05:03 05:03 WBC 14.7 H (3.8-10.6) k/uL RBC 2.75 L (4.30-5.90) m/uL Hgb 8.8 L (13.0-17.5) gm/dL Hct 27.9 L (39.0-53.0) % MCV 101.7 H (80.0-100.0) fL Neutrophils # 12.8 H (1.3-7.7) k/uL Lymphocytes # 0.9 L (1.0-4.8) k/uL PT 12.0 H (9.9-11.9) sec Glucose 135 H (70-110) mg/dL Calcium 8.2 L (8.7-10.3) mg/dL Microbiology - Last 24 Hours (Table) 03/31/21 17:50 Anaerobic Culture - Preliminary Back 03/31/21 17:50 Gram Stain - Final Back Wound Culture - Final Assessment and Plan (1) Spinal stenosis at L4-L5 level Current Visit: Yes Status: Acute Code(s): M48.061 - SPINAL STENOSIS, LUMBAR REGION WITHOUT NEUROGENIC MAGALY SNOMED Code(s): 16510371 Plan: Impression: 1. Gait disturbance due to lumbar stenosis bilateral radiculopathies status post decompression and fusion. 2. Urinary retention. 3. Coronary disease with history of angina and [place]. 4. COPD. 5. Hypertension. 6. Dyslipidemia. 7. Osteoarthritis. 8. Reflux. Comments and plan: At this time PT and OT are ongoing. Safety concerns noted. Discussed inpatient rehab with patient and he is agreeable.
[2021-04-03 06:15] LABS: Basophils % (A) 0 %; Eosinophils % (A) 0 %; HCT 24.1 % (39.0-53.0); Lymphocytes # (A) 0.7 k/uL (1.0-4.8); Lymphocytes % (A) 6 %; MCH 32.5 pg (25.0-35.0); MCHC 33.2 g/dL (31.0-37.0); MCV 97.9 fL (80.0-100.0); Mean Platelet Volume 7.7; Monocytes # (A) 0.6 k/uL (0-1.0); Monocytes % (A) 5 %; Neutrophils # (A) 10.3 k/uL (1.3-7.7); Neutrophils % (A) 88 %; Platelet Count 188 k/uL (150-450); RBC 2.46 m/uL (4.30-5.90); RDW 12.6 % (11.5-15.5); WBC 11.7 k/uL (3.8-10.6)
[2021-04-03 06:41] LABS: INR 1.2 (<1.2); Prothrombin Time 12.3 sec (9.0-12.0)
[2021-04-03] MEDS: METOPROLOL TARTRATE 50 MG TAB PO SCH ×2 (08:14→21:22)
[2021-04-03] MEDS: SODIUM CHLORIDE 0.9% 1,000 ML IV SCH (08:14)
[2021-04-03] MEDS: ASPIRIN 81 MG PO SCH (08:14)
[2021-04-03] MEDS: SENNOSIDES-DOCUSATE SODIUM 1 EACH TAB PO SCH (08:14)
[2021-04-03] MEDS: TAMSULOSIN 0.4 MG CAP.ER.24H PO SCH ×2 (08:14→21:23)
--- NOTE | 2021-04-03 09:56 | P.DS ---
Providers Date of admission: 03/31/21 18:54 Expected date of discharge: 04/03/21 Attending physician: Mica Kumari Consults: 03/31/21 18:54 Consult Physician Routine Consulting Provider: Zafar Salas Consult Reason/Comments: Medical management Do you want consulting provider notified?: Yes 03/31/21 18:58 Consult Physician Routine Consulting Provider: Tripp Bermudez Consult Reason/Comments: Urinary retention with history of indwelling [place] Do you want consulting provider notified?: Yes, Notify in am 04/02/21 11:04 Consult Physician Routine Consulting Provider: Teja Elizabeth Consult Reason/Comments: in pt rehab Do you want consulting provider notified?: Yes 04/02/21 11:09 Consult Physician Routine Consulting Provider: Teja Elizabeth Consult Reason/Comments: Evaluation for inpatient rehab at discharge Do you want consulting provider notified?: Yes Primary care physician: Arlette Espinoza - Discharge Diagnosis(es) (1) Status post lumbar spinal fusion Current Visit: Yes Status: Acute (2) Spinal stenosis Current Visit: Yes Status: Acute Hospital Course: The patient has had long-standing issues in their lower back and lower extremities. She's been having severe worsening over the past several months and was having weakness in his lower extremities. He is actually been limiting his motion and been using a wheelchair past few months. He has been having worsening of his strength in his lower extremities and has been having urinary retention. He has a number of medical issues and was not able to undergo intervention due to his multiple medical issues and need for stabilization with those. He was found have severe stenosis at his lumbar spine with degenerative scoliosis. His stenosis correlate with number of his symptoms at his low back and lower extremities. He is difficult to determine if he had urinary retention from his stenosis. The patient has been through conservative treatment. He had not had any significant benefit despite despite aggressive conservative treatment past. The patient has been in a wheelchair and has had an indwelling [place] for the past couple of weeks. He had multiple he urinary tract infections which have been treated as well. He has a number of medical issues which needed stabilization prior to undergoing surgery of this magnitude. We discussed various treatment options including surgery, and the patient wishes to proceed with surgery We discussed the risk, patient's alternatives and benefits of surgery including but not limited to, risk of bleeding risk of infection, risk of need for further surgery, risk of decreased, loss of motion, muscle function, malunion nonunion, hardware failure, nerve damage, paralysis, heart attack, blindness and . The patient is admitted to [facility] on 03/31/2021 for posterior lumbar decompression and fusion of L2 through S1. The patient is stable from an orthopedic spine standpoint. He has been evaluated by physiatry for inpatient rehab. The patient has been accepted to [facility] inpatient rehab. He will be discharged to rehab today. Please see med rec for accurate list of home medications. Patient Condition at Discharge: Good Plan - Discharge Summary Discharge Rx Participant: No New Discharge Prescriptions: New HYDROcodone/APAP 7.5-325MG [[place] 7.5-325] 1 - 2 tab PO Q6HR PRN #32 tab PRN Reason: Pain Cyclobenzaprine [Flexeril] 10 mg PO TID PRN #30 tab PRN Reason: Spasms No Action Metoprolol Tartrate [Lopressor] 50 mg PO BID amLODIPine [Norvasc] 10 mg PO HS Aspirin 81 mg PO DAILY chew Atorvastatin [Lipitor] 40 mg PO HS hydroCHLOROthiazide 25 mg PO QAM Losartan Potassium 100 mg PO QAM Warfarin [Coumadin] 2.5 mg PO HS Cyclobenzaprine [Flexeril] 10 mg PO BID PRN PRN Reason: Muscle Spasm Albuterol Inhaler [Ventolin Hfa Inhaler] 1 puff IN DIRECTED PRN PRN Reason: Shortness Of Breath Or Wheezing HYDROcodone/APAP 5-325MG [[place] 5-325] 1 tab PO TID PRN PRN Reason: Pain Ciprofloxacin HCl [Cipro] 500 mg PO BID Famotidine [Pepcid AC] 10 mg PO DIRECTED PRN PRN Reason: GERD Discharge Medication List Metoprolol Tartrate [Lopressor] 50 mg PO BID 03/31/16 [History] amLODIPine [Norvasc] 10 mg PO HS 03/31/16 [History] Aspirin 81 mg PO DAILY chew 04/04/16 [Rx] Atorvastatin [Lipitor] 40 mg PO HS 11/08/19 [History] Losartan Potassium 100 mg PO QAM 11/08/19 [History] hydroCHLOROthiazide 25 mg PO QAM 11/08/19 [History] Albuterol Inhaler [Ventolin Hfa Inhaler] 1 puff IN DIRECTED PRN 03/10/21 [History] HYDROcodone/APAP 5-325MG [[place] 5-325] 1 tab PO TID PRN 03/10/21 [History] Warfarin [Coumadin] 2.5 mg PO HS 03/10/21 [History] Ciprofloxacin HCl [Cipro] 500 mg PO BID 03/26/21 [History] Cyclobenzaprine [Flexeril] 10 mg PO BID PRN 03/26/21 [History] Famotidine [Pepcid AC] 10 mg PO DIRECTED PRN 03/27/21 [History] Cyclobenzaprine [Flexeril] 10 mg PO TID PRN #30 tab 04/03/21 [Rx] HYDROcodone/APAP 7.5-325MG [[place] 7.5-325] 1 - 2 tab PO Q6HR PRN #32 tab 04/03/21 [Rx] Follow up Appointment(s)/Referral(s): Hola Riggs MD [STAFF PHYSICIAN] - 2 Weeks Kris Hassan PAC [PHYSICIAN [employer]] - 2 Weeks (Patient may follow-up with Kris Hassan PA-C or Dr. Bryn Kumari at [facility] in 2-3 weeks following discharge. ) [facility] [NON-STAFF] - 1 Week Activity/Diet/Wound Care/Special Instructions: 1. Patient may shower with Optifoam dressing intact. 2. Patient may remove Optifoam dressing in 3 days and shower without a dressing at that time. 3. Patient should refrain from driving until at least after their first follow- up appointment in the office. 4. Patient should avoid excessive bending, twisting, lifting; avoid overhead lifting; no lifting greater than 10 pounds 5. Take medications as prescribed 6. Do not soak in tub Discharge Disposition: TRANSFER TO SNF/ECF
[2021-04-03] MEDS: HYDROcodone/APAP 7.5-325MG 1 EACH TAB PO PRN ×2 (11:08→21:22)
--- NOTE | 2021-04-03 17:51 | PN ---
PROGRESS NOTE DATE OF SERVICE: 04/03/2021 This 70-year-old gentleman admitted after laminectomy and back surgery is improving significantly. Patient had elevated white count, but there is no evidence of pneumonia, no history of fever. White count is diminishing also. No chest pain. No palpitations. No fever. Chest x-ray is reported as normal. PHYSICAL EXAMINATION: Alert and oriented x3. Pulse is 101, blood pressure 108/67, respiration 19, temperature 98.2, pulse ox 99% on 3 L. HEENT: Conjunctivae normal. NECK: No jugular venous distention. CARDIOVASCULAR: S1, S2 muffled. RESPIRATION: Breath sounds diminished at the bases. No rhonchi. No crackles. ABDOMEN: Soft, nontender. EXAMINATION OF THE BACK: Status post surgery. NERVOUS SYSTEM: No focal deficit. LAB STUDIES: WBC 11.7, hemoglobin is 8. UA unremarkable. ASSESSMENT: 1. Status post laminectomy decompression L5-S1 with severe degenerative joint disease and spinal canal stenosis. 2. Increased creatinine with mild acute renal failure, improved. 3. Relative hypotension, improved. 4. Increased white count, possibly reactive, improved. 5. Anemia. 6. Increased mean corpuscular volume. 7. Increased random glucose. 8. History of atrial fibrillation. 9. History of coronary artery disease. 10.History of chest pain, angina. 11.History of chronic obstructive pulmonary disease. 12.Gastroesophageal reflux disease. 13.History of deafness. 14.Hypertension. 15.Hyperlipidemia. 16.History of myocardial infarction. 17.History of degenerative joint disease. 18.History of chronic atrial fibrillation. 19.History of [place] catheter. 20.History of recurrent urinary tract infections. 21.History of bilateral leg edema. 22.History of coronary artery disease, stent. 23.Remote history of nicotine dependence. 24.Obesity with body mass index of 32.6. 25.FULL CODE. RECOMMENDATIONS AND DISCUSSION: I recommend to continue current medications, continue with the monitoring, symptomatic treatment. Otherwise at this time I recommend continuing with incentive spirometry. Repeat labs in the outpatient setting. Otherwise, further recommendations per Orthopedic Surgery. Patient is medically stable at this time. MMODL / IJN: [id number] /
[2021-04-03] MEDS ORDERED: WARFARIN 7.5 MG TAB PO ONE (18:00)
[2021-04-03 20:36] VITALS: RESP 20
[2021-04-03] MEDS: ATORVASTATIN 40 MG TAB PO SCH (21:22)
[2021-04-03] MEDS: amLODIPine 10 MG TAB PO SCH (21:23)
[2021-04-04] MEDS: SODIUM CHLORIDE 0.9% 1,000 ML IV SCH ×2 (04:17→13:52)
[2021-04-04] MEDS: BENZOCAINE/MENTHOL LOZENG 1 EACH LOZENGE MUCOUS MEM PRN ×2 (04:20→13:55)
[2021-04-04 06:14] LABS: INR 1.4 (<1.2)
[2021-04-04] MEDS: SENNOSIDES-DOCUSATE SODIUM 1 EACH TAB PO SCH (07:54)
[2021-04-04] MEDS: TAMSULOSIN 0.4 MG CAP.ER.24H PO SCH (07:54)
[2021-04-04] MEDS: ASPIRIN 81 MG PO SCH (07:54)
[2021-04-04] MEDS: METOPROLOL TARTRATE 50 MG TAB PO SCH (07:54)
[2021-04-04] MEDS: HYDROcodone/APAP 7.5-325MG 1 EACH TAB PO PRN ×2 (07:56→13:55)
--- NOTE | 2021-04-04 09:01 | P.PN ---
Progress Note - Text Progress Note Date: 04/04/21 Orthopedic Spine History of present illness: Patient is a pleasant 70-year-old male who is seen and examined at the bedside following posterior lateral decompression and fusion performed Wednesday. Patient states they are doing well post operatively. He has been able to transfer to a bedside chair. He states his pain is well-controlled at his lumbar spine. He has been able to work with physical therapy to increase his mobility. He has kevin d his Monaco catheter discontinued and is able to void but has had some difficulty controlling his voiding. He was seen and examined by urology this morning. They're planning for a UA and a post-residual void. If needed, Monaco catheter will be reinserted. Urology is clearly the patient for discharge today with plans for follow-up evaluation in the outpatient setting in 2 weeks. Patient is currently waiting for approval from his insurance for discharge today to inpatient rehab at [facility] with Dr. Elizabeth. Currently does not complain of nausea, vomiting, fever, or chills. Patient states pain has been adequately controlled. Patient is eating without difficulty. He continues to be seen and examined by medicine for his other medical diagnoses. He feels he is ready for discharge today. Physical Exam Lumbar Fusion: Status post surgical day number 4 Patient is awake, alert, and oriented 3 Vital signs stable Good chest excursion with deep inspiration and expiration Dorsiflexion, plantarflexion, and extensor hallucis longus positive sustained bilaterally No signs or symptoms of DVT; no calf pain; pneumatic cuffs intact bilateral lower extremities Patient is able to lift legs independently off the bed bilaterally but is weaker on the right than the left Optifoam dressings are dry and intact over the lumbar spine and right iliac crest; no erythema, purulence, or signs of infection One small area of dried blood at the superior portion of the dressing at the drain site, which the drain has been removed Neurovascularly intact bilaterally lower extremities Monaco catheter has been discontinued Assessment: Status post L2-3, L3-4, L4-5, and L5-S1 posterior lateral decompression and fusion Low back pain L2-3, L3-4, L4-5, and L5-S1 severe spinal stenosis Degenerative scoliosis Urinary retention Lower extremity weakness Lower extremity radiculopathy Low back pain Hypertension Coronary artery disease Atrial fibrillation Hyperlipidemia Shortness of breath Recent urinary tract infection Monaco catheter placed prior to admission Hard of hearing Obesity Plan: 1. Ambulate as tolerated; work with Physical Therapy to increase mobilization; patient is encouraged to use a walker to aid in ambulation 2. Continue pain control with oral medications 3. Dressings to remain intact with Optifoam; patient may shower with dressings intact; dressing may be removed in 3 days and patient may shower without a dressing at that time incision remains dry and intact 4. Medical management can continue to manage patient for patient's other medical diagnoses including hypertension, coronary artery disease, atrial fibrillation, hyperlipidemia, and shortness of breath 5. Urology will continue to see and examine the patient in regards to his urinary retention; urology is currently planning for a UA and a post-residual void; Monaco catheter will be reinserted if needed; urology has cleared the p atient for discharge and will see the patient in the outpatient setting in 2 weeks 6. Patient is planning for discharge today to inpatient rehabilitation at [facility] with Dr. Elizabeth. Patient's discharge is scheduled for today pending insurance approval. 7. Patient can follow-up with Kris Hassan PA-C or Dr. Bryn Kumari at [facility] in 2-3 weeks following discharge
[2021-04-04] MEDS: ALBUTEROL NEBULIZED 2.5 MG/3 ML INHALATION PRN (10:46)
[2021-04-04 11:58] VITALS: BP 112/76; PULSE 97; TEMP 97.2
[2021-04-04 13:04] LABS: Appearance,Urine Clear (Clear); Bilirubin,Urine Negative (Negative); Blood,Urine Negative (Negative); Color,Urine Yellow; Glucose,Urine (UA) Negative (Negative); Ketones,Urine Negative (Negative); Leukocyte Esterase,Urine Negative (Negative); Nitrite,Urine Negative (Negative); Protein,Urine Trace (Negative); Specific Gravity,Urine 1.013 (1.001-1.035); Urobilinogen,Urine <2.0 mg/dL (<2.0)
[2021-04-04] MEDS ORDERED: WARFARIN 10 MG TAB PO ONE (18:00)
--- NOTE | 2021-04-04 19:20 | P.PN ---
Subjective Progress Note Date: 04/04/21 patient Monaco catheter was removed yesterday, has been having urinary frequency urgency difficulty voiding. His PVR is 480 mL Objective - Vital Signs Vital signs: Vital Signs Temp 97.2 F L 04/04/21 11:57 Pulse 97 04/04/21 11:57 Resp 20 04/04/21 11:57 BP 112/76 04/04/21 11:57 Pulse Ox 100 04/04/21 11:57 Intake & Output 04/04/21 04/04/21 04/05/21 06:59 18:59 06:59 Intake Total 400 Output Total 800 1194 Balance -400 -1194 Intake: Oral 400 Output: Urine 800 700 Post Void Residual 494 Other: Voiding Method Indwelling Catheter Urinal Indwelling Catheter - Constitutional General appearance: Present: no acute distress - Gastrointestinal General gastrointestinal: Present: distended, soft - Psychiatric Psychiatric: Present: A&O x's 3 - Labs CBC & Chem 7: 04/03/21 05:13 04/02/21 05:03 Labs: Abnormal Lab Results - Last 24 Hours (Table) 04/04/21 04/04/21 Range/Units 04:55 12:10 PT 14.0 H (9.0-12.0) sec INR 1.4 H (<1.2) Urine Protein Trace H (Negative) Microbiology - Last 24 Hours (Table) 03/31/21 17:50 Anaerobic Culture - Final Back Assessment and Plan Assessment: this is a 70-year-old male underwent spinal fusion y. Patient had a urinary retention preoperatively, a Monaco catheter was placed in the ER in February. catheter removed yesterday, able to void but having significant urinary symptoms. PVRs 480 mL -continue on Flomax 0.4 mg twice a day -recommend Monaco catheter given his symptoms and elevated PVR, can follow-up in 7-10 days for a trial of void
--- NOTE | 2021-04-04 20:49 | PN ---
PROGRESS NOTE DATE OF SERVICE: 04/04/2021 This 70-year-old gentleman who was admitted after back surgery is being closely monitored. No chest pain. No palpitations. No fever. Inpatient rehab is being considered. PHYSICAL EXAMINATION: Alert and oriented x3. The pulse is 97, blood pressure 137/70, respiration 20, temperature 97.2, pulse ox 100% on 3 L. HEENT: Conjunctivae normal. Oral mucosa moist. NECK: No jugular venous distention. No lymph node enlargement. CARDIOVASCULAR: S1, S2, muffled. No S3, no S4, RESPIRATORY: Diminished breath sounds at the bases. No rhonchi, no crackles. ABDOMEN: Soft, nontender. LEGS: No edema, no swelling. NERVOUS SYSTEM: No focal deficits. LABS: WBC 7.7, hemoglobin 8, other labs are noted. ASSESSMENT: 1. Status post laminectomy and decompression L5-S1 for severe degenerative joint disease and spinal canal stenosis. 2. Increased creatinine with mild acute renal failure, present on admission, improved. 3. Relative hypotension, improved. 4. Increased WBC, possibly reactive, improved. 5. Anemia. 6. Increased MCV. 7. Increased random glucose. 8. History of atrial fibrillation, chronic. 9. History of CAD. 10.History of chest pain, angina. 11.History of COPD. 12.GERD. 13.History of deafness. 14.Hypertension. 15.Hyperlipidemia. 16.History of myocardial infarction. 17.History of DJD. 18.History of Monaco catheter. 19.History of recurrent UTIs. 20.History of bilateral leg edema. 21.History of CAD/stent. 22.Remote history of nicotine dependence. 23.Obesity with body mass index of 32.6. 24.FULL CODE. RECOMMENDATIONS AND DISCUSSION: Continue current management and symptomatic treatment. Continue incentive spirometry, DVT prophylaxis. Closely follow. The rest of the recommendations per Orthopedic Surgery. Further recommendations to follow. MMODL / IJN: [id number] /
== END 2021-04-04 16:18 | DRG 454 ==
LOC: OR 11:17 → 5NMEDONC 18:54 → OR 18:54 → 5NMEDONC 22:03
PROVIDERS: ADMIT Orthopaedic Surgery Orthopaedic Surgery of the Spine; ATTEND Orthopaedic Surgery Orthopaedic Surgery of the Spine
PROC: 07DS3ZZ Extraction of Vertebral Bone Marrow, Percutaneous Approach (ICD-10-PCS; 2021-03-31)
PROC: 4A11X4G Monitoring of Peripheral Nervous Electrical Activity, Intraoperative, External Approach (ICD-10-PCS; 2021-03-31)
PROC: 8E0WXBG Computer Assisted Procedure of Trunk Region, With Computerized Tomography (ICD-10-PCS; 2021-03-31)
PROC: 0SG1071 Fusion of 2 or more Lumbar Vertebral Joints with Autologous Tissue Substitute, Posterior Approach, Posterior Column, Open Approach (ICD-10-PCS; principal; 2021-03-31 12:30)
PROC: 0SG10AJ Fusion of 2 or more Lumbar Vertebral Joints with Interbody Fusion Device, Posterior Approach, Anterior Column, Open Approach (ICD-10-PCS; principal; 2021-03-31 12:30)
PROC: 0SG30AJ Fusion of Lumbosacral Joint with Interbody Fusion Device, Posterior Approach, Anterior Column, Open Approach (ICD-10-PCS; principal; 2021-03-31 12:30)
PROC: 0SG3071 Fusion of Lumbosacral Joint with Autologous Tissue Substitute, Posterior Approach, Posterior Column, Open Approach (ICD-10-PCS; principal; 2021-03-31 12:30)
PROC: 01NB0ZZ Release Lumbar Nerve, Open Approach (ICD-10-PCS; principal; 2021-03-31 12:30)
DX: M48.07 Spinal stenosis, lumbosacral region (principal); N17.9 Acute kidney failure, unspecified; I48.20 Chronic atrial fibrillation, unspecified; I96 Gangrene, not elsewhere classified; M47.27 Other spondylosis with radiculopathy, lumbosacral region; I10 Essential (primary) hypertension; I25.10 Atherosclerotic heart disease of native coronary artery without angina pectoris; M47.816 Spondylosis without myelopathy or radiculopathy, lumbar region; N40.1 Benign prostatic hyperplasia with lower urinary tract symptoms; M47.817 Spondylosis without myelopathy or radiculopathy, lumbosacral region; M41.87 Other forms of scoliosis, lumbosacral region; M46.97 Unspecified inflammatory spondylopathy, lumbosacral region; Z20.822 Contact with and (suspected) exposure to COVID-19; Z68.33 Body mass index [BMI] 33.0-33.9, adult; R33.8 Other retention of urine; I95.9 Hypotension, unspecified; R35.0 Frequency of micturition; I25.2 Old myocardial infarction; D64.9 Anemia, unspecified; E66.9 Obesity, unspecified; E78.5 Hyperlipidemia, unspecified; H91.90 Unspecified hearing loss, unspecified ear; J44.9 Chronic obstructive pulmonary disease, unspecified; K21.9 Gastro-esophageal reflux disease without esophagitis; Z87.891 Personal history of nicotine dependence; Z87.440 Personal history of urinary (tract) infections; Z79.01 Long term (current) use of anticoagulants; Z79.82 Long term (current) use of aspirin; Z79.899 Other long term (current) drug therapy; Z95.5 Presence of coronary angioplasty implant and graft; Z97.4 Presence of external hearing-aid; Z98.1 Arthrodesis status; Z91.030 Bee allergy status; Z98.42 Cataract extraction status, left eye; Z98.41 Cataract extraction status, right eye
CPT/HCPCS: 36415; 71045; 72020; 80048; 81001; 81003; 85025; 85610; 86850; 86891; 86900; 86901; 87070; 87075; 87205; 87635; 88304; 94640; 94760

== ENCOUNTER 2021-04-09 07:44 | Emergency (ER) | payer MEDICARE ==
--- NOTE | 2021-04-09 08:42 | ED ---
General Adult HPI - General Stated complaint: Cardiac arrest Time Seen by Provider: 04/09/21 07:56 Source: EMS, RN notes reviewed, old records reviewed Mode of arrival: EMS - History of Present Illness Initial comments: Patient is a 71-year-old male who presents emergency Department after cardio pulmonary arrest. Patient was found at 635 this morning at [facility] complaining of shortness of breath and shortly after lost pulses. Providers at the facility immediately started chest compressions. They shocked the patient 4 times total. He had a V. fib rhythm. EMS arrived, provided cont inued care. They placed a Pawan tube. Shocked the patient 1 or 2 times. Patient was in V. fib. Received total for diabetes. They did acheive ROSC, however it was brief. Patient was pulseless when he was placed in the rig at 735. Is brought to the emergency department for further evaluation. Patient recently received spinal surgery on 03/31/2021. Presents emergency Department after prolonged period of cardiac arrest. Patient is on anticoagulation for his history of A. fib. - Related Data Home Medications Medication Instructions Recorded Confirmed Metoprolol Tartrate [Lopressor] 50 mg PO BID 03/31/16 03/31/21 amLODIPine [Norvasc] 10 mg PO HS 03/31/16 03/31/21 Atorvastatin [Lipitor] 40 mg PO HS 11/08/19 03/31/21 Albuterol Inhaler [Ventolin Hfa 1 puff IN DIRECTED PRN 03/10/21 03/31/21 Inhaler] HYDROcodone/APAP 5-325MG [Enterprise 1 tab PO TID PRN 03/10/21 03/31/21 5-325] Warfarin [Coumadin] 2.5 mg PO HS 03/10/21 03/31/21 Ciprofloxacin HCl [Cipro] 500 mg PO BID 03/26/21 03/31/21 Cyclobenzaprine [Flexeril] 10 mg PO BID PRN 03/26/21 03/31/21 Famotidine [Pepcid AC] 10 mg PO DIRECTED PRN 03/27/21 03/31/21 Previous Rx's Medication Instructions Recorded Aspirin 81 mg PO DAILY chew 04/04/16 Benzocaine/Menthol Lozeng [Cepacol 1 each MUCOUS MEM Q4HR PRN lozenge 12/16/21 lozenge] Cyclobenzaprine [Flexeril] 10 mg PO TID PRN #30 tab 04/03/21 HYDROcodone/APAP 7.5-325MG [Enterprise 1 - 2 tab PO Q6HR PRN #32 tab 04/03/21 7.5-325] Na Phos,M-B/Na Phos,Di-Ba [Fleet 133 ml RECTAL DAILY PRN 04/03/21 Adult] Sennosides-Docusate Sodium 1 each PO DAILY tab 04/03/21 [Senokot-S] Sennosides-Docusate Sodium 2 each PO DAILY PRN tab 04/03/21 [Senokot-S] Tamsulosin [Flomax] 0.4 mg PO BID capsule 04/03/21 Allergies Allergy/AdvReac Type Severity Reaction Status Date / Time venom-honey bee AdvReac Anaphylaxis Verified 04/09/21 08:05 Review of Systems ROS Statement: Those systems with pertinent positive or pertinent negative responses have been documented in the HPI. Unable to obtain secondary to patient's current clinical status. ROS Other: All systems not noted in ROS Statement are negative. Past Medical History Past Medical History: Atrial Fibrillation, Coronary Artery Disease (CAD), Chest Pain / Angina, COPD, GERD/Reflux, Hearing Disorder / Deafness, Hyperlipidemia, Hypertension, Myocardial Infarction (WA), Musculoskeletal Disorder, Osteoarthritis (OA) Additional Past Medical History / Comment(s): Chronic AFib, [place] X2, bilat hearing aids. lower back and hip pain. Monaco catheter x1 month, UTI current. Edema BLE. Last Myocardial Infarction Date:: 03/31/16 History of Any Multi-Drug Resistant Organisms: None Reported Past Surgical History: Heart Catheterization With Stent, Orthopedic Surgery Additional Past Surgical History / Comment(s): Cardiac stents X3, bilateral carpal tunnel repair, bilateral rotator cuff repair, bilateral cataract removal. Past Anesthesia/Blood Transfusion Reactions: Postoperative Nausea & Vomiting (PONV) Additional Past Anesthesia/Blood Transfusion Reaction / Comment(s): PONV x1. Date of Last Stent Placement:: 05/14/16 Past Psychological History: No Psychological Hx Reported Smoking Status: Former smoker Past Alcohol Use History: None Reported Past Drug Use History: None Reported - Past Family History Father Family Medical History: Myocardial Infarction (WA) Additional Family Medical History / Comment(s): Father of a [place] at the age of 62 yrs. Mother Family Medical History: Diabetes Mellitus, Renal Disease Additional Family Medical History / Comment(s): Mother at the age of 67yrs from renal failure. Brother(s) Family Medical History: Congestive Heart Failure (CHF) Additional Family Medical History / Comment(s): Pt has 3 brothers that had CHF. General Exam - General Exam Comments Initial Comments: General: Unresponsive HEAD: Normal with no signs of head trauma. EYES: Pupils are 4 mm, fixed. ENT: Trachea is midline RESPIRATORY: Pawan tube in place. C/V: Pulseless, CPR in progress ABD: Abdomen is mildly distended likely secondary to back pain. EXT: No obvious deformity SKIN: Abrasions over chest secondary to CPR machine NEURO: Unresponsive Procedures - Intubation Laryngoscope: other (glidescope) Size: 4 ET Tube Size: 7.5 Tube Secured Depth (cm): 24 Tube Secured Location: lips Tube Placement Confirmation: visualized tube passing through cords, equal breath sounds bilaterally, confirmation by capnometry Patient Tolerated Procedure: no complications Intubation Complications: none Medical Decision Making - Medical Decision Making Patient presents in active cardiopulmonary arrest after prolonged down time at a nursing facility after being there for rehab after surgery. There was a brief return of spontaneous circulation, however lost pulses again. Received multiple shocks for ventricular fibrillation. Patient presents in active cardiopulmonary arrest. ACLS protocol was followed. Pawan tube in place, however this was changed out for a normal endotracheal tube. See separate procedure note for further details. Patient tolerated the procedure without difficulty. CPR was continued. He received a total of 3 epinephrines, 2 A of bicarb, 2 A of calcium. Sugar was within normal limits. He was defibrillated a total of 2 times for ventricular fibrillation. Received 300 and then 150 g of amiodarone. After approximately 10 minutes of resuscitation here in the department, and furthermore over an hour of resuscitation by EMS and [facility] with only brief ROSC midway through resuscitation, the decision was made to terminate resuscitation. Patient was in asystole on the monitor at this time. Time of was called at 0755. The patient is . At this time, there was no cardiac activity on cardiac ultrasound. Pictures were unable to be printed due to the printer malfunction. I notified the medical administrative specialist. Body will be released to the family. I updated family members, patient's and sister and answered all questions that they had. I spoke and notified the patient's PCP, Dr. Espinoza through their nurse practitioner who accepted the phone call. [place] [facility] [place] Disposition Clinical Impression: Cardiac arrest, Disposition: Referrals: Arlette Espinoza MD [Primary Care Provider] - 1-2 days Preliminary Cause of : cardiopulmonary arrest
== END 2021-04-09 10:32 | disposition expired ==
LOC: EC 07:44
DX: I46.9 Cardiac arrest, cause unspecified (principal); S20.319A Abrasion of unspecified front wall of thorax, initial encounter; I10 Essential (primary) hypertension; I25.2 Old myocardial infarction; I48.91 Unspecified atrial fibrillation; I25.10 Atherosclerotic heart disease of native coronary artery without angina pectoris; E78.5 Hyperlipidemia, unspecified; J44.9 Chronic obstructive pulmonary disease, unspecified; K21.9 Gastro-esophageal reflux disease without esophagitis; M19.90 Unspecified osteoarthritis, unspecified site; Z87.891 Personal history of nicotine dependence; Z79.82 Long term (current) use of aspirin; Z79.01 Long term (current) use of anticoagulants; Z79.51 Long term (current) use of inhaled steroids; Z79.899 Other long term (current) drug therapy; W22.8XXA Striking against or struck by other objects, initial encounter
CPT/HCPCS: 31500; 92950; 99285